=== PATIENT | female | born 1985 | race Caucasian/White ===

== ENCOUNTER → 2017-11-24 09:13 | Outpatient (CLI) | payer SELFPAY ==
[2017-11-24 09:49] LABS: Absolute Lymphocyte Count 1.25 X10^3/ul (0.83-4.51); Absolute Neutrophil Count 5.5 X10^3/uL (2.0-7.7); Basophil# 0.01 X10^3/uL; Basophil% 0.1 % (0-1); Eosinophil# 0.06 X10^3/uL; Eosinophils% 0.8 % (0-5); Hematocrit 38.5 % (37-47); Lymphocyte # 1.25 X10^3/ul (4.0); Lymphocyte % 17.7 % (19-41); Mean Corp Hgb Conc 33.8 g/gl (32-36); Mean Corpuscular Hgb 29.7 pg (27.0-32.0); Mean Corpuscular Volume 87.9 fL (81-99); Mean Platelet Vol. 9.5 fl (6.2-12.0); Monocyte# 0.29 X10^3/uL; Monocyte% 4.1 % (0-10); Neutrophil # 5.46 X10^3/uL (2.7-7.7); Neutrophil % 77.2 % (47-70); Platelet Count 296 K/mm3 (150-450); RBC Distribution Width CV 12.4 % (11.6-14.6); RBC Distribution Width SD 39.6 fl (35.1-43.9); Red Blood Count 4.38 M/mm3 (4.2-5.4); White Blood Count 7.1 K/mm3 (4.4-11.0)
[2017-11-24 09:54] LABS: POSITIVE COUNT NO; POSITIVE DIFFERENTIAL NO; POSITIVE MORPHOLOGY NO
[2017-11-24 10:14] LABS: Glucose Challenge Gest 1H 50g 170 mg/dL (70-140); Thyroid Stim Hormone (TSH) 0.76 uIU/mL (0.358-3.74)
[2017-11-24 11:53] LABS: HIV - WCH Non-Reactive (Nonreactive); Rubella IgG 278.7 IU/mL
[2017-11-25 09:31] LABS: HEPATITIS B SURFACE AG Negative (Negative)
[2017-11-26 02:54] LABS: Rapid Plasmin Reagin (RPR) NONREACTIVE (NONREACTIVE)
== END ==
PROVIDERS: Visit Provider Obstetrics & Gynecology
DX: O09.299 Supervision of pregnancy with other poor reproductive or obstetric history, unspecified trimester (principal); O99.280 Endocrine, nutritional and metabolic diseases complicating pregnancy, unspecified trimester; E01.0 Iodine-deficiency related diffuse (endemic) goiter; Z3A.00 Weeks of gestation of pregnancy not specified
CPT/HCPCS: 36415; 82950; 84439; 84443; 85025; 86592; 86703; 86762; 86850; 86900; 87340

== ENCOUNTER → 2017-11-24 14:33 | Outpatient (CLI) | payer OTHER, SELFPAY ==
[2017-11-24 16:26] LABS: Chlamydia Trachomatis by PCR Negative (Negative); Neisserai gonorrhoeae by PCR Negative (Negative); Probe Check PASS; Sample Adequacy Control PASS; Specimen Processing Control PASS
[2017-11-29 09:01] LABS: HPV APTIMA, High Risk Negative (Negative)
== END ==
PROVIDERS: Visit Provider Obstetrics & Gynecology
DX: Z12.4 Encounter for screening for malignant neoplasm of cervix (principal); O09.299 Supervision of pregnancy with other poor reproductive or obstetric history, unspecified trimester; O99.280 Endocrine, nutritional and metabolic diseases complicating pregnancy, unspecified trimester; E01.0 Iodine-deficiency related diffuse (endemic) goiter
CPT/HCPCS: 87086; 87088; 87491; 87591; 88175; G0145

== ENCOUNTER → 2017-12-07 09:58 | Outpatient (CLI) | payer OTHER, SELFPAY ==
[2017-12-07 11:03] LABS: Glucose GTT-Gestation. Fasting 83 mg/dL (<105)
[2017-12-07 11:55] LABS: Glucose GTT-Gestational 1 Hr 171 mg/dL (<190)
[2017-12-07 12:50] LABS: Glucose GTT-Gestational 2 Hr 129 mg/dL (<165)
[2017-12-07 13:52] LABS: Glucose GTT-Gestational 3 Hr 117 L (<145)
== END ==
PROVIDERS: Nurse Practitioner Women's Health; Visit Provider Obstetrics & Gynecology
DX: O99.810 Abnormal glucose complicating pregnancy (principal); Z3A.00 Weeks of gestation of pregnancy not specified
CPT/HCPCS: 36415; 82951; 82952

== ENCOUNTER → 2018-02-02 13:21 | Outpatient (CLI) | payer OTHER, SELFPAY ==
--- NOTE | 2018-02-02 13:23 | US_ITS ---
STUDY: SECOND AND THIRD TRIMESTER OBSTETRICAL ULTRASOUND REASON FOR EXAM: Female, 32 years old. , assessment LMP: September 21, 2017 TECHNIQUE: Transabdominal imaging of the pelvis was performed using real-time ultrasound. PRIOR ULTRASOUND: None. FINDINGS: There is a single intrauterine fetus. The fetus is in a breech presentation. There is demonstrated cardiac activity with a heart rate of 167 bpm. There is a normal amniotic fluid volume. The placenta is anterior in location and is not low lying. There are Grade 0 placental changes. The cervix measures 3.5 cm in length. The adnexal regions were not adequately visualized. BIOMETRY: BPD: 4.40 cm: 19 weeks, 3 days HC: 16.34 cm: 19 weeks, 1 days AC: 14.23 cm: 19 weeks, 5 days FL: 2.96 cm: 19 weeks, 1 days CI: 79% FL/BPD: 67% FL/HC: FL/AC: 21% HC/AC: 1.15 age by current US: 19 weeks, 3 days. MEGHANA by current US: June 26, 2018. Estimated weight: 287 grams, +/- 42 grams, 58 %. age by prior US: weeks, days. MEGHANA by prior US: . Age by LMP: 19 weeks, 1 days. MEGHANA by LMP: June 28, 2018. ANATOMY: Gender: Cranium: Normal lateral ventricles. Normal choroid plexus. Normal cerebellum. Normal cisterna magna. Normal face, nose and lips. Chest: Normal 4-chamber heart. Abdomen/Pelvis: Normal diaphragm. Normal stomach. Normal abdominal wall. Normal cord insertion. Normal 3 vessel cord. Normal kidneys. Normal bladder. Spine: Normal cervical spine. Normal thoracic spine. Normal lumbar spine. Extremities: Normal bilateral upper extremities. Normal bilateral lower extremities. US/OB Anatomy Scan IMPRESSION: There is a viable intrauterine with estimated gestational age of 19 weeks 3 days by the current ultrasound. No acute abnormalities are seen. Measurements are given above. Electronically Signed: Sis Bianchi MD at 0:18 EDT Tel Direct: [phone], Service support ,
== END ==
LOC: OPUS 13:23
PROVIDERS: Visit Provider Obstetrics & Gynecology
DX: O09.299 Supervision of pregnancy with other poor reproductive or obstetric history, unspecified trimester (principal); O99.280 Endocrine, nutritional and metabolic diseases complicating pregnancy, unspecified trimester; E01.0 Iodine-deficiency related diffuse (endemic) goiter; Z3A.00 Weeks of gestation of pregnancy not specified
CPT/HCPCS: 76805

== ENCOUNTER → 2018-04-04 13:42 | Outpatient (CLI) | payer OTHER, SELFPAY ==
[2018-04-04 16:24] LABS: Absolute Lymphocyte Count 1.42 X10^3/ul (0.83-4.51); Absolute Neutrophil Count 7.3 X10^3/uL (2.0-7.7); Basophil# 0.01 X10^3/uL; Basophil% 0.1 % (0-1); Eosinophil# 0.05 X10^3/uL; Eosinophils% 0.5 % (0-5); Hematocrit 35.1 % (37-47); Hemoglobin 11.6 g/dl (12.0-15.0); Lymphocyte # 1.42 X10^3/ul (4.0); Lymphocyte % 15.2 % (19-41); Mean Corpuscular Hgb 29.5 pg (27.0-32.0); Mean Corpuscular Volume 89.3 fL (81-99); Mean Platelet Vol. 9.8 fl (6.2-12.0); Monocyte# 0.55 X10^3/uL; Monocyte% 5.9 % (0-10); Neutrophil # 7.28 X10^3/uL (2.7-7.7); Platelet Count 249 K/mm3 (150-450); RBC Distribution Width CV 13.1 % (11.6-14.6); RBC Distribution Width SD 42.6 fl (35.1-43.9); Red Blood Count 3.93 M/mm3 (4.2-5.4); White Blood Count 9.3 K/mm3 (4.4-11.0)
[2018-04-04 16:27] LABS: POSITIVE COUNT NO; POSITIVE DIFFERENTIAL NO; POSITIVE MORPHOLOGY NO
[2018-04-04 16:28] LABS: Glucose Challenge Gest 1H 50g 148 mg/dL (70-140)
== END ==
PROVIDERS: Nurse Practitioner Women's Health; Visit Provider Obstetrics & Gynecology
DX: Z34.93 Encounter for supervision of normal pregnancy, unspecified, third trimester (principal); Z3A.28 28 weeks gestation of pregnancy
CPT/HCPCS: 36415; 82950; 85025

== ENCOUNTER → 2018-04-13 06:58 | Outpatient (CLI) | payer OTHER, SELFPAY ==
[2018-04-13 08:05] LABS: Glucose GTT-Gestation. Fasting 101 mg/dL (<105)
[2018-04-13 08:56] LABS: Glucose GTT-Gestational 1 Hr 242 mg/dL (<190)
[2018-04-13 09:49] LABS: Glucose GTT-Gestational 2 Hr 182 mg/dL (<165)
[2018-04-13 11:38] LABS: Glucose GTT-Gestational 3 Hr 120 L (<145)
== END ==
PROVIDERS: Nurse Practitioner Women's Health; Visit Provider Obstetrics & Gynecology
DX: O99.810 Abnormal glucose complicating pregnancy (principal); Z3A.00 Weeks of gestation of pregnancy not specified
CPT/HCPCS: 36415; 82951; 82952

== ENCOUNTER 2018-05-24 13:30 | Outpatient (RCR) | payer OTHER, SELFPAY | END 2018-05-24 23:59 | LOC: DC 13:30 | PROVIDERS: Visit Provider Nurse Practitioner Women's Health | DX: O24.419 Gestational diabetes mellitus in pregnancy, unspecified control (principal); Z71.3 Dietary counseling and surveillance | CPT/HCPCS: 97802; G0108 ==

== ENCOUNTER → 2018-05-31 17:28 | Outpatient (CLI) | payer OTHER, SELFPAY ==
[2018-05-31 18:57] LABS: Group B Strep DNA By PCR Negative (Negative); Internal Control PASS; Probe Check PASS; Specimen Processing Control PASS
== END ==
PROVIDERS: Visit Provider Obstetrics & Gynecology
DX: Z34.90 Encounter for supervision of normal pregnancy, unspecified, unspecified trimester (principal)
CPT/HCPCS: 87081; 87653

== ENCOUNTER → 2018-06-01 16:46 | Outpatient (CLI) | payer OTHER, SELFPAY | PROVIDERS: Visit Provider Obstetrics & Gynecology | DX: O24.419 Gestational diabetes mellitus in pregnancy, unspecified control (principal); Z3A.00 Weeks of gestation of pregnancy not specified | CPT/HCPCS: 76816 ==

== ENCOUNTER 2018-06-14 07:00 | Inpatient (IN) | payer OTHER, SELFPAY ==
[2018-06-14] MEDS: Lactated Ringers 1,000 ML 50 ML IV (07:15)
[2018-06-14 07:24] VITALS: BMI 280.7
[2018-06-14 07:31] LABS: Hematocrit 40.7 % (37-47); Hemoglobin 13.9 g/dl (12.0-15.0); Mean Corp Hgb Conc 34.2 g/gl (32-36); Mean Corpuscular Hgb 29.7 pg (27.0-32.0); Mean Platelet Vol. 10.2 fl (6.2-12.0); Platelet Count 263 K/mm3 (150-450); RBC Distribution Width CV 13.1 % (11.6-14.6); RBC Distribution Width SD 40.2 fl (35.1-43.9); Red Blood Count 4.68 M/mm3 (4.2-5.4); White Blood Count 12.4 K/mm3 (4.4-11.0)
[2018-06-14 07:36] LABS: Scan Indicated on CBC? Y/N NO
[2018-06-14] MEDS: Oxytocin 30 units/NS 500 ml 30 UNITS/500 ML IV.SOLN 334 UNITS IV (07:45)
--- NOTE | 2018-06-14 08:11 | PCM.HP.OB ---
- Problem List (1) Active labor at term Status: Acute (2) Gestational diabetes Status: Acute Qualifiers: (3) Thyromegaly Status: Acute Comment: labs and ultrasound ordered (4) Previous delivery, antepartum Status: Acute Comment: x1, considering TOLAC, 56% of success, uptodate education given (5) History of miscarriage, currently Status: Acute Comment: 15 week SAB- no d and c, ordered APL workup (6) Supervision of normal Status: Acute Qualifiers: Comment: PRR MEGHANA 06/28/18 gender surprise PC Warren Khoa History Date of Admission: 06/14/18 Final MEGHANA: 06/28/18 Gestational age: 38 Weeks and 0 Days History of this : This is a 32 year-old, , at 38 weeks gestational age presents IAL. she was 7 cm and delivered quickyl, she has been laboring at home for almost 24 hours intermittently but they just became severe tonight. she has had well controlled diabetes and has denied vb or lof, has had good fm. Surgical History: Surgical History (Last Reviewed 06/07/18 @ 13:16 by Deidra Alexander) delivery delivered O82 Allergies No Known Allergies Allergy (Verified 06/07/18 13:16) Home Medications: Home Medications vitamin,calcium,rjxyutyp-pcec-uvwok acid tablet 1 tab PO QDAY 11/24/17 blood-glucose meter kit See Dose Instructions .ROUTE .MEDSUPPLY #1 ea 04/13/18 blood sugar diagnostic strips See Dose Instructions .ROUTE .MEDSUPPLY #100 ea 05/16/18 Smoking Status: Never smoker Alcohol: None Number of Fetus(es): 1 Heart Tracin-160 mod variability recurrent periodic variables cat II tracing TOCO Analysis: q2 History Past Pregnancies: Past Pregnancies previous term cs for FTP 36 hour labor Delivery Date Name GA/Weeks Outcome Route Weight Gender Labor Length Anesthesia Delivery Location Provider FOB Labs: [facility] Results 06/14/18 06/14/18 07:15 07:15 WBC 12.4 H RBC 4.68 Hgb 13.9 Hct 40.7 MCV 87.0 MCH 29.7 MCHC 34.2 RDW 13.1 RDW Differential 40.2 Plt Count 263 MPV 10.2 Blood Type Pending Antibody Screen Pending Social History Smoking Status Never smoker Expected Delivery Method: Spontaneous Vaginal Review of Systems Constitutional: Denies: Fever, Malaise Eyes: Denies: Blurred vision, Vision Change HEENT: Denies: Head Aches, Visual Changes Cardiovascular: Denies: Chest Pain, Palpitations Respiratory: Denies: Cough, Shortness of Breath, Wheezing Gastrointestinal: Reports: Abdominal Pain, Nausea. Denies: Diarrhea, Vomiting Genitourinary: Denies: Dysuria, Hematuria Musculoskeletal: Denies: Joint Pain, Muscle pain Skin: Denies: Lesions, Rash Neurological: Denies: Blurred vision, Focal weakness, Headaches Psychiatric: Denies: Anxiety, Depression Endocrine: Denies: Heat/ Cold Intolerance Hematologic/ Lymphatic: Denies: Easy Bruising, Easy Bleeding Physical Exam General: Alert, Cooperative, No apparent distress HEENT: Atraumatic, Normocephalic. Negative for: Thyromegaly, Lymphadenopathy Cardiovascular: Regular rate Lungs: Normal air movement Abdomen: Soft, Non Tender, Gravid Neurological: Deep Tendon Reflexes 2+/4 and Symmetrical, Neuro grossly intact. 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 Negative for: Vulvar lesions Estimated gestational size: Appropriate for gestational size Presentation: Cephalic Cervix Dilation (cm): 7 Assessment/Plan All Active Problems (Last Reviewed 06/07/18 @ 13:16 by Deidra Alexander) Active labor at term (Acute) Gestational diabetes (Acute) Thyromegaly (Acute) Previous delivery, antepartum (Acute) History of miscarriage, currently (Acute) Supervision of normal (Acute) This is a 32 year-old, , at 38 weeks gestational age IAL desires TOLAC, delivered quickly uncomplicated
--- NOTE | 2018-06-14 08:14 | HP.PCM_ITS ---
- Problem List (1) Active labor at term Status: Acute (2) Gestational diabetes Status: Acute Qualifiers: (3) Thyromegaly Status: Acute Comment: labs and ultrasound ordered (4) Previous delivery, antepartum Status: Acute Comment: x1, considering TOLAC, 56% of success, uptodate education given (5) History of miscarriage, currently Status: Acute Comment: 15 week SAB- no d and c, ordered APL workup (6) Supervision of normal Status: Acute Qualifiers: Comment: PRR MEGHANA 06/28/18 gender surprise PC Warren Khao History Date of Admission: 06/14/18 Final MEGHANA: 06/28/18 Gestational age: 38 Weeks and 0 Days History of this : This is a 32 year-old, , at 38 weeks gestational age presents IAL. she was 7 cm and delivered quickyl, she has been laboring at home for almost 24 hours intermittently but they just became severe tonight. she has had well controlled diabetes and has denied vb or lof, has had good fm. Surgical History: Surgical History (Last Reviewed 06/07/18 @ 13:16 by Deidra Alexander) delivery delivered O82 Allergies No Known Allergies Allergy (Verified 06/07/18 13:16) Home Medications: Home Medications vitamin,calcium,fumkqgrm-kdxp-ufdii acid tablet 1 tab PO QDAY 11/24/17 blood-glucose meter kit See Dose Instructions .ROUTE .MEDSUPPLY #1 ea 04/13/18 blood sugar diagnostic strips See Dose Instructions .ROUTE .MEDSUPPLY #100 ea Smoking Status: Never smoker Alcohol: None Number of Fetus(es): 1 Heart Tracin-160 mod variability recurrent periodic variables cat II tracing TOCO Analysis: q2 History Past Pregnancies: Past Pregnancies previous term cs for FTP 36 hour labor Delivery Date Name GA/Weeks Outcome Route Weight Infant Gender Labor Length Anesthesia Delivery Location Provider FOB Labs: [facility] Labs & Results 06/14/18 06/14/18 07:15 07:15 WBC 12.4 H RBC 4.68 Hgb 13.9 Hct 40.7 MCV 87.0 MCH 29.7 MCHC 34.2 RDW 13.1 RDW Differential 40.2 Plt Count 263 MPV 10.2 Blood Type Pending Antibody Screen Pending Social History Smoking Status Never smoker Expected Delivery Method: Spontaneous Vaginal Review of Systems Constitutional: Denies: Fever, Malaise Eyes: Denies: Blurred vision, Vision Change HEENT: Denies: Head Aches, Visual Changes Cardiovascular: Denies: Chest Pain, Palpitations Respiratory: Denies: Cough, Shortness of Breath, Wheezing Gastrointestinal: Reports: Abdominal Pain, Nausea. Denies: Diarrhea, Vomiting Genitourinary: Denies: Dysuria, Hematuria Musculoskeletal: Denies: Joint Pain, Muscle pain Skin: Denies: Lesions, Rash Neurological: Denies: Blurred vision, Focal weakness, Headaches Psychiatric: Denies: Anxiety, Depression Endocrine: Denies: Heat/ Cold Intolerance Hematologic/ Lymphatic: Denies: Easy Bruising, Easy Bleeding Physical Exam General: Alert, Cooperative, No apparent distress HEENT: Atraumatic, Normocephalic. Negative for: Thyromegaly, Lymphadenopathy Cardiovascular: Regular rate Lungs: Normal air movement Abdomen: Soft, Non Tender, Gravid Neurological: Deep Tendon Reflexes 2+/4 and Symmetrical, Neuro grossly intact. 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 Negative for: Vulvar lesions Estimated gestational size: Appropriate for gestational size Presentation: Cephalic Cervix Dilation (cm): 7 Assessment/Plan All Active Problems (Last Reviewed 06/07/18 @ 13:16 by Deidra Alexander) Active labor at term (Acute) Gestational diabetes (Acute) Thyromegaly (Acute) Previous delivery, antepartum (Acute) History of miscarriage, currently (Acute) Supervision of normal (Acute) This is a 32 year-old, , at 38 weeks gestational age IAL desires TOLAC, delivered quickly uncomplicated
[2018-06-14] MEDS: Oxytocin 30 units/NS 500 ml 30 UNITS/500 ML IV.SOLN 167 UNITS IV (08:15)
[2018-06-14 08:16] LABS: Bedside Glucose 129 mg/dL (70-110)
[2018-06-14] MEDS: Methylergonovine 0.2 MG/ML Ampul IM (08:49)
[2018-06-14 09:10] LABS: Bedside Glucose 118 mg/dL (70-110)
--- NOTE | 2018-06-14 09:30 | PCM.PN.BLA ---
Progress Note Called to see patient Nurse worried about bleeding. ? laceration. Repored 2nd deg laceration at delivery. Precipitous no anesthesia. Appears fatigued Pt afeb, VSS. Ordered CBC. Pending. Fundus firm tender consistent w/ recent delivery and firm fundal checks. Bleeding at perineum. slow trickle. Mod amt lochia rubra on pad No further pelvic exam as amt of bleeding not concerning at present. Will continue IV pitocin at Methergine given 0.2 mg IM x one. A/P: S/P Bleeding. Likely 2/2 blood accumulated within uterus until delivery of placenta. continue to observe. Repeat CBC ordered for AM also.
[2018-06-14 09:47] LABS: Hematocrit 37.2 % (37-47); Hemoglobin 12.5 g/dl (12.0-15.0); Mean Corp Hgb Conc 33.6 g/gl (32-36); Mean Corpuscular Hgb 29.7 pg (27.0-32.0); Mean Corpuscular Volume 88.4 fL (81-99); Mean Platelet Vol. 10.2 fl (6.2-12.0); Platelet Count 232 K/mm3 (150-450); RBC Distribution Width CV 13.2 % (11.6-14.6); RBC Distribution Width SD 42.3 fl (35.1-43.9); Red Blood Count 4.21 M/mm3 (4.2-5.4); Scan Indicated on CBC? Y/N NO; White Blood Count 16.6 K/mm3 (4.4-11.0)
[2018-06-14] MEDS: 0.9% Saline Lock 10 ML Syringe IV (10:29)
[2018-06-14 12:06] VITALS: BP 140/76; PULSE 120; RESP 20; TEMP 36.7
[2018-06-14] MEDS: Naproxen 250 MG Tablet PO (12:11)
[2018-06-14 12:29] VITALS: PULSE 105; RESP 18; O2SAT 96
--- NOTE | 2018-06-14 12:59 | NURSING ---
1255 f/f one below umbilicus lochia small to moderate 63 cc on pad in one hour no trickling seen; pulse ox on for last 25 minutes maternal pulse ranging from 105-110 as a baseline with increases to 120 and decreases to [address] santos called and given vital sign stats and lochia amount plan is to continue to monitor bleeding and vital signs if maternal pulse consistently stays above or at 120 a EKG is to be ordered.
[2018-06-14 14:47] VITALS: BP 141/82; PULSE 107; RESP 18; TEMP 36.3
--- NOTE | 2018-06-14 14:48 | NURSING ---
Pt up to bathroom, pt able to void 700+cc, passed 300cc blood clot into urine hat. Pt reports feeling much better after voiding. Unable to locate fundus & bleeding is small at this time. Dr Pedro notified of Vital signs, blood clot and unable to locate fundus. Orders received for Methergine PO.
[2018-06-14 16:00] VITALS: BP 131/64; PULSE 93; RESP 16; TEMP 37.2
[2018-06-14] MEDS: Acetaminophen 500 MG Tablet 1000 MG PO (18:30)
[2018-06-14 20:21] VITALS: BP 135/71; PULSE 93; RESP 20; TEMP 36.1
[2018-06-14 23:25] VITALS: BP 129/68; PULSE 84; RESP 18; TEMP 35.8
[2018-06-15 03:03] VITALS: BP 122/75; PULSE 92; RESP 18; TEMP 35.9
[2018-06-15] MEDS: Naproxen 250 MG Tablet PO ×2 (03:11→20:02)
[2018-06-15 05:25] LABS: Bedside Glucose 102 mg/dL (70-110)
[2018-06-15 05:49] LABS: Hematocrit 33.5 % (37-47); Hemoglobin 11.2 g/dl (12.0-15.0); Mean Corp Hgb Conc 33.4 g/gl (32-36); Mean Corpuscular Hgb 29.8 pg (27.0-32.0); Mean Corpuscular Volume 89.1 fL (81-99); Mean Platelet Vol. 9.8 fl (6.2-12.0); Platelet Count 212 K/mm3 (150-450); RBC Distribution Width CV 13.4 % (11.6-14.6); RBC Distribution Width SD 41.8 fl (35.1-43.9); Red Blood Count 3.76 M/mm3 (4.2-5.4); White Blood Count 10.2 K/mm3 (4.4-11.0)
[2018-06-15 06:02] LABS: Scan Indicated on CBC? Y/N NO
--- NOTE | 2018-06-15 08:14 | PCM.PN.OB ---
Patient Problems: Active and Suspected Problems (Last Reviewed 06/07/18 @ 13:16 by Deidra Alexander) Active labor at term (Acute) Subjective: Doing well. Up ambulating. States no longer with palpitations. No CP, SOB - Physical Exam General: Alert, Oriented x3 Abdomen: Soft, Non Tender, - - FF below U Vital Signs Temp Pulse Resp BP Pulse Ox 96.7 F L 92 18 122/75 H 96 06/15/18 03:03 06/15/18 03:03 06/15/18 03:03 06/15/18 03:03 06/14/18 12:29 Oxygen Delivery Method Room Air Weight: 245 lb 9.519 oz Body Mass Index (BMI) 280.7 Intake and Output for Last 24 Hours 06/13/18 06/14/18 06/15/18 23:59 23:59 23:59 Intake Total 373 / 373 Output Total 710 / 710 Balance -337 / -337 Laboratory Tests Past 24 Hrs 06/14/18 06/14/18 06/15/18 07:15 09:25 05:20 WBC 16.6 H 10.2 RBC 4.21 3.76 L Hgb 12.5 11.2 L Hct 37.2 33.5 L MCV 88.4 89.1 MCH 29.7 29.8 MCHC 33.6 33.4 RDW 13.2 13.4 RDW Differential 42.3 41.8 Plt Count 232 212 MPV 10.2 9.8 Blood Type A POSITIVE Antibody Screen NEGATIVE POC Glucose 06/15/18 06/14/18 06/14/18 05:14 09:01 07:29 POC Glucose 102 118 H 129 H Medical Necessity - Tobacco Use Smoking Status: Never smoker Assessment/Plan All Active Problems (Last Reviewed 06/07/18 @ 13:16 by Deidra Alexander) Active labor at term (Acute) Gestational diabetes (Acute) Thyromegaly (Acute) Previous delivery, antepartum (Acute) History of miscarriage, currently (Acute) Supervision of normal (Acute) PPD#1: Reviewed hgb now 11.3-may dc IV. Will check with Dr. Pedro to dc methergine. FBS 102. Routine management Pain controlled. Otherwise routine care
[2018-06-15 09:13] VITALS: BP 120/69; PULSE 82; RESP 16; TEMP 36.6; O2SAT 97
[2018-06-15 09:20] VITALS: PULSE 82
[2018-06-15 11:04] VITALS: BP 125/72; PULSE 76; RESP 18; TEMP 36.6; O2SAT 98
--- NOTE | 2018-06-15 12:38 | NURSING ---
This clinical nursing professor reviewed the charting completed by Layla Bhagat, student nurse.
[2018-06-15 14:00] VITALS: BP 117/68; PULSE 80; RESP 18; TEMP 36.4
[2018-06-15 20:00] VITALS: BP 122/62; PULSE 109; RESP 18; TEMP 36.4
[2018-06-16] MEDS: Acetaminophen 500 MG Tablet 1000 MG PO (01:28)
[2018-06-16 01:30] VITALS: BP 125/59; PULSE 95; RESP 18; TEMP 36.3
[2018-06-16 08:06] VITALS: BP 121/67; PULSE 85; RESP 18; TEMP 36.5
--- NOTE | 2018-06-16 09:35 | NURSING ---
0800 this instructor helped student with the assessment and vital signs. Also helped student with the documentation of findings. The student gave a report of the assessment and vs to the primary RN Carlos Enrique Calderon.
--- NOTE | 2018-06-16 11:05 | PCM.PN.OB ---
Patient Problems: Active and Suspected Problems (Last Reviewed 06/07/18 @ 13:16 by Deidra Alexander) Active labor at term (Acute) Subjective: No SOB, CP. doing well. Plans home today - Physical Exam General: Alert, Oriented x3 Abdomen: Soft, Non Tender, - - FF below U Vital Signs Temp Pulse Resp BP Pulse Ox 97.7 F L 85 18 121/67 H 98 06/16/18 08:06 06/16/18 08:06 06/16/18 08:06 06/16/18 08:06 06/15/18 11:04 Oxygen Delivery Method Room Air Weight: 245 lb 9.519 oz Body Mass Index (BMI) 280.7 Intake and Output for Last 24 Hours 06/14/18 06/15/18 06/16/18 23:59 23:59 23:59 Intake Total 373 / 373 Output Total 710 / 710 Balance -337 / -337 Medical Necessity - Tobacco Use Smoking Status: Never smoker Assessment/Plan All Active Problems (Last Reviewed 06/07/18 @ 13:16 by Deidra Alexander) Active labor at term (Acute) Gestational diabetes (Acute) Thyromegaly (Acute) Previous delivery, antepartum (Acute) History of miscarriage, currently (Acute) Supervision of normal (Acute) PPD #2: Routine care. . Home today
--- NOTE | 2018-06-16 11:07 | PCM.DCVAG ---
Additional Instructions: If you experience any of the following, contact your healthcare provider. Bleeding that soaks a pad every hour for 2 hours Fever 100.4 or higher Unrelieved incision or abdominal pain Swelling, redness, discharge or bleeding from your incision or episiotomy site Your incision begins to separate Problems urinating (including inability to urinate or burning while urinating). Visual changes Severe headache Flu-like symptoms Pain or redness in one of both of your breasts Pain, warmth, tenderness or swelling in your legs, especially the calf area Frequent nausea and vomiting Symptoms of depression or anxiety If you experience any of the following, call 911 or go to the nearest Emergency Room. Chest pain Problems breathing Seizure activity Partial or complete paralysis of a body part, slurred speech, weakness or drooping of the face, or a sudden inability to walk or hold your balance Allergies/Adverse Reactions: Allergies No Known Allergies Allergy (Verified 06/07/18 13:16) Medications to take at Discharge vitamin,calcium,vfbeywgg-msgf-cmqxb acid tablet 1 tab PO QDAY 11/24/17 blood-glucose meter kit See Dose Instructions .ROUTE .MEDSUPPLY #1 ea 04/13/18 blood sugar diagnostic strips See Dose Instructions .ROUTE .MEDSUPPLY #100 ea 05/16/18 Primary Care Physician: Care Physician,No Primary [Primary Care Provider] - Test Results: Test results from this visit will be discussed in further detail at your follow-up appointment, if applicable.
--- NOTE | 2018-06-16 11:08 | DCINST_ITS ---
Additional Instructions: If you experience any of the following, contact your healthcare provider. * Bleeding that soaks a pad every hour for 2 hours * Fever 100.4 or higher * Unrelieved incision or abdominal pain * Swelling, redness, discharge or bleeding from your incision or episiotomy site * Your incision begins to separate * Problems urinating (including inability to urinate or burning while urinating) . * Visual changes * Severe headache * Flu-like symptoms * Pain or redness in one of both of your breasts * Pain, warmth, tenderness or swelling in your legs, especially the calf area * Frequent nausea and vomiting * Symptoms of depression or anxiety If you experience any of the following, call 911 or go to the nearest Emergency Room. * Chest pain * Problems breathing * Seizure activity * Partial or complete paralysis of a body part, slurred speech, weakness or drooping of the face, or a sudden inability to walk or hold your balance Allergies/Adverse Reactions: Allergies No Known Allergies Allergy (Verified 06/07/18 13:16) Medications to take at Discharge vitamin,calcium,sncuinyi-dkid-mnkhy acid tablet 1 tab PO QDAY 11/24/17 blood-glucose meter kit See Dose Instructions .ROUTE .MEDSUPPLY #1 ea 04/13/18 blood sugar diagnostic strips See Dose Instructions .ROUTE .MEDSUPPLY #100 ea Primary Care Physician: Care Physician,No Primary [Primary Care Provider] - Test Results: Test results from this visit will be discussed in further detail at your follow- up appointment, if applicable.
--- NOTE | 2018-06-16 22:42 | OP.PCM_ITS ---
- Problem List (1) Active labor at term Status: Acute (2) Gestational diabetes Status: Acute Qualifiers: (3) Thyromegaly Status: Acute Comment: labs and ultrasound ordered (4) Previous delivery, antepartum Status: Acute Comment: x1, considering TOLAC, 56% of success, uptodate education given (5) History of miscarriage, currently Status: Acute Comment: 15 week SAB- no d and c, ordered APL workup (6) Supervision of normal Status: Acute Qualifiers: Comment: PRR MEGHANA 06/28/18 gender surprise PC Warren Khoa Vaginal Delivery Maternal Presentation: Active Labor tolac Amniotic Membrane Rupture Type: Artificial Amniotic Fluid Description: Clear Final MEGHANA: 06/28/18 Gestational age: 38 Weeks and 2 Days Date of Procedure: 06/14/18 Pre-Operative Diagnosis: ial tolac Post-Operative Diagnosis: same Surgery/ Procedure Performed: Spontaneous Vaginal Delivery Type of Anesthesia: Local with 1% lidocaine Description of Procedure: Patient began pushing and a pudendal block was placed bilaterally after Betadine prepped the initial spines were located bilaterally and 2 cm medial and posterior into the sacrospinous ligament 10 cc of 1% lidocaine was injected bilaterally without complication. The patient resumed pushing and delivered the head in the DARNELL presentation. The head was delivered atraumatically. The anterior and posterior shoulders delivered without complication followed by the rest of the infant and the infant was placed on the maternal abdomen. Delayed cord clamping was employed for approximately 60 seconds. Cord was clamped and cut and gentle traction was applied to the cord and the placenta delivered spontaneously immediately following it was noted to be intact with three-vessel cord. The perineum and vagina were inspected and noted to have a small second- degree perineal laceration. Patient and tolerated delivery well. Presentation: DARNELL Placental Delivery Description: Spontaneous Placenta Disposition: [facility] Cord Entanglement: None A gender: Male Episiotomy Description: None Laceration: Perineal Extension/lac, 2nd degree Medications given after delivery: IV Pitocin Complications: None
== END 2018-06-16 11:38 | disposition home or self-care (01) | DRG 775 ==
PROVIDERS: Obstetrics & Gynecology; Admitting Provider Obstetrics & Gynecology; Visit Provider Obstetrics & Gynecology
DX: O24.429 Gestational diabetes mellitus in childbirth, unspecified control (principal); O34.219 Maternal care for unspecified type scar from previous cesarean delivery; O62.3 Precipitate labor; O70.1 Second degree perineal laceration during delivery; Z3A.38 38 weeks gestation of pregnancy; Z37.0 Single live birth
CPT/HCPCS: 59025; 59050; 82962; 85027; 86850; 86900; 99218; J7120; A4216; G0378

== ENCOUNTER → 2021-08-19 14:13 | Outpatient (CLI) | payer BC, SELFPAY | PROVIDERS: Referring Provider Obstetrics & Gynecology; Visit Provider Obstetrics & Gynecology | DX: N91.2 Amenorrhea, unspecified (principal) | CPT/HCPCS: 36415; 84702 ==

== ENCOUNTER → 2021-09-16 08:31 | Outpatient (CLI) | payer BC, SELFPAY ==
--- NOTE | 2021-09-16 08:33 | US_ITS ---
STUDY: FIRST TRIMESTER OBSTETRICAL ULTRASOUND REASON FOR EXAM: Female, 36 years old . Dating. Patient unsure of dates. LMP: 06/11/2021. TECHNIQUE: Transabdominal TECHNICAL QUALITY: Adequate. PRIOR ULTRASOUND: None. FINDINGS: There is visualization of a single gestational sac in a normal intrauterine position. The mean sac diameter (MSD) measures 4.9 cm, indicating an estimated gestational age (EGA) of 10 weeks, 3 days. The gestational sac shape is within normal limits. There is no demonstrated yolk sac. The placenta is non-visualized. There is visualization of a live embryo. The crown-rump length (CRL) measures 6.07 cm, indicating an estimated gestational age (EGA) of 12 weeks, 3 days. There is demonstrated cardiac activity with a heart rate of 167 bpm. The estimated gestation age (EGA) by LMP is 13 weeks, 6 days. The estimated date of delivery (MEGHANA) by LMP is 03/18/2022. The estimated gestation age (EGA) by US is 12 weeks, 3 days. The estimated date of delivery (MEGHANA) by US is 03/28/2022. The uterus measures 11.3 cm x 9.2 cm x 7.4 cm. There is no demonstrated uterine fibroid. The cervix is closed. The right ovary was not visualized. The left ovary was not visualized. There is no fluid in the cul de sac. US/Init OB < 14Wks US IMPRESSION: A single live intrauterine gestation with a mean gestational age of 13 weeks and 6 days. Electronically Signed: Denver Peoples MD at 12:49 EST , Service support ,
== END ==
PROVIDERS: Referring Provider Nurse Practitioner Women's Health; Visit Provider Nurse Practitioner Women's Health
DX: Z36.87 Encounter for antenatal screening for uncertain dates (principal)
CPT/HCPCS: 76801

== ENCOUNTER 2021-09-30 12:50 | Outpatient (CLI) | payer BC, SELFPAY ==
[2021-09-30 14:27] LABS: Amphetamine Urine VISTA NEGATIVE (<1000 ng/mL); Barbiturate Urine VISTA NEGATIVE (< 200 ng/mL); Benzodiazepine Urine VISTA NEGATIVE (< 200 ng/mL); Cocaine Urine VISTA NEGATIVE (< 300 ng/mL); Ecstacy Urine VISTA NEGATIVE (< 500 ng/mL); Methadone Urine VISTA NEGATIVE (< 300 ng/mL); PCP Urine VISTA NEGATIVE (< 25 ng/mL); THC Urine VISTA NEGATIVE (< 50 ng/mL); Vista UDS pH Range 6
[2021-10-02 22:06] LABS: Chlamydia By Nucleic Acid AMP Negative (Negative)
[2021-10-03 15:31] LABS: Gonococcus By Nucleic Acid AMP Negative (Negative)
== END 2021-09-30 23:59 | disposition short-term general hospital (02) ==
LOC: LABSPEC 12:52
PROVIDERS: Visit Provider Obstetrics & Gynecology
DX: Z34.90 Encounter for supervision of normal pregnancy, unspecified, unspecified trimester (principal)
CPT/HCPCS: 80307; 87086; 87088; 87491; 87591

== ENCOUNTER 2021-11-05 10:56 | Outpatient (CLI) | payer BC, SELFPAY ==
[2021-11-05 11:09] LABS: Absolute Lymphocyte Count 1.54 X10^3/uL (0.83-4.51); Absolute Neutrophil Count 5.8 X10^3/uL (2.0-7.7); Basophil# 0.02 X10^3/uL; Basophil% 0.3 % (0-1); Eosinophil# 0.07 X10^3/uL; Eosinophils% 0.9 % (0-5); Hematocrit 36.7 % (37-47); Hemoglobin 12.7 g/dL (12.0-15.0); Lymphocyte # 1.54 X10^3/ul (0.83-4.51); Lymphocyte % 19.5 % (19-41); Mean Corp Hgb Conc 34.6 g/dL (32-36); Mean Corpuscular Hgb 30.4 pg (27.0-32.0); Mean Corpuscular Volume 87.8 fL (81-99); Mean Platelet Vol. 9.8 fl (6.2-12.0); Monocyte# 0.47 X10^3/uL; Monocyte% 5.9 % (0-10); NRBC Flagged by Analyzer 0 % (0-5); Neutrophil # 5.78 X10^3/uL (2.7-7.7); Platelet Count 258 K/mm3 (150-450); RBC Distribution Width CV 12.4 % (11.6-14.6); RBC Distribution Width SD 39.5 fl (35.1-43.9); Red Blood Count 4.18 M/mm3 (4.2-5.4); White Blood Count 7.9 K/mm3 (4.4-11.0)
[2021-11-05 11:43] LABS: Hemoglobin A1c 5.4 % (3.8-5.6)
[2021-11-05 12:19] LABS: HIV - WCH Non-Reactive (Nonreactive); Hepatitis B Surface Antigen Non-Reactive (Nonreactive); Hepatitis C Antibody Non-Reactive (Nonreactive); Rubella IgG Reactive (Nonreactive); Syphilis Antibodies Non-reactive
== END 2021-11-05 23:59 | disposition home or self-care (01) ==
LOC: PAVLAB 10:57
PROVIDERS: Obstetrics & Gynecology; Referring Provider Obstetrics & Gynecology; Visit Provider Obstetrics & Gynecology
DX: O99.210 Obesity complicating pregnancy, unspecified trimester (principal); E66.9 Obesity, unspecified; Z3A.00 Weeks of gestation of pregnancy not specified
CPT/HCPCS: 36415; 83036; 85025; 86703; 86762; 86780; 86803; 86850; 86900; 86901; 87340

== ENCOUNTER 2021-11-12 13:52 | Outpatient (CLI) | payer BC, SELFPAY ==
--- NOTE | 2021-11-12 13:54 | US_ITS ---
STUDY: SECOND AND THIRD TRIMESTER OBSTETRICAL ULTRASOUND REASON FOR EXAM: Female, 36 years old anatomy LMP: 06/11/2021. TECHNIQUE: Transabdominal and Transvaginal TECHNICAL QUALITY: Adequate. PRIOR ULTRASOUND: Comparison is made with prior examination dated 09/16/2021. FINDINGS: There is a single intrauterine fetus. The fetus is in a breech presentation. There is demonstrated cardiac activity with a heart rate of 150 bpm. There is a normal amniotic fluid volume. The largest amniotic fluid pocket measures 6 cm x 5 cm. The amniotic fluid index (NISREEN) is within normal limits. The placenta is fundal in location. There are Grade 0 placental changes. The cervix measures 3.2 cm in length. The bilateral adnexal regions are normal. BIOMETRY: BPD: 5.13 cm: 21 weeks, 3 days HC: 18.49 cm: 20 weeks, 5 days AC: 16.37 cm: 21 weeks, 3 days FL: 3.63 cm: 21 weeks, 3 days CI: 81% FL/BPD: 71% FL/HC: FL/AC: 22% HC/AC: 1.13 age by current US: 21 weeks, 1 days. MEGHANA by current US: 03/24/2022. Estimated weight: 429 grams, +/- 64 grams, 22 %. age by prior US: 20 weeks, 4 days. MEGHANA by prior US: 03/28/2022. Age by LMP: 22 weeks, 0 days. MEGHANA by LMP: 03/18/2022. ANATOMY: Gender: Male Cranium: Normal lateral ventricles. Normal choroid plexus. Normal cerebellum. Normal cisterna magna. Normal face, nose and lips. Chest: Normal 4-chamber heart. Abdomen/Pelvis: Normal diaphragm. Normal stomach. Normal abdominal wall. Normal cord insertion. Normal 3 vessel cord. Normal kidneys. Normal bladder. Spine: Normal cervical spine. Normal thoracic spine. Normal lumbar spine. Normal sacrum. Extremities: Normal bilateral upper extremities. Normal bilateral lower extremities. IMPRESSION: Single live intrauterine gestation with a mean gestational age of 20 weeks and 4 days. The measurements obtained today fall within the normal expected range. Electronically Signed: Denver Peoples MD at 15:03 EST , STUDY: FIRST TRIMESTER OBSTETRICAL ULTRASOUND REASON FOR EXAM: Female, 36 years old . Cervical length measurement. LMP: 06/11/2022. TECHNIQUE: Transvaginal TECHNICAL QUALITY: Adequate. PRIOR ULTRASOUND: None. FINDINGS: Cervical length measures 3.2 cm. US/OB Anatomy Scan IMPRESSION: Cervical length measures 3.2 cm. Electronically Signed: Denver Peoples MD at 15:03 EST ,
== END 2021-11-12 23:59 | disposition home or self-care (01) ==
LOC: OPUS 13:53
PROVIDERS: Referring Provider Obstetrics & Gynecology; Visit Provider Obstetrics & Gynecology
DX: Z34.83 Encounter for supervision of other normal pregnancy, third trimester (principal)
CPT/HCPCS: 76805; 76817

== ENCOUNTER 2021-12-24 09:33 | Outpatient (CLI) | payer BC, SELFPAY ==
[2021-12-24 10:08] LABS: Absolute Lymphocyte Count 1.34 X10^3/uL (0.83-4.51); Absolute Neutrophil Count 5.6 X10^3/uL (2.0-7.7); Basophil# 0.02 X10^3/uL; Basophil% 0.3 % (0-1); Eosinophil# 0.07 X10^3/uL; Eosinophils% 0.9 % (0-5); Hematocrit 36.5 % (37-47); Hemoglobin 12.4 g/dL (12.0-15.0); Lymphocyte # 1.34 X10^3/ul (0.83-4.51); Lymphocyte % 17.8 % (19-41); Mean Corpuscular Hgb 30.2 pg (27.0-32.0); Mean Corpuscular Volume 88.8 fL (81-99); Mean Platelet Vol. 9.6 fl (6.2-12.0); Monocyte# 0.46 X10^3/uL; Monocyte% 6.1 % (0-10); NRBC Flagged by Analyzer 0 % (0-5); Neutrophil % 74.4 % (47-70); Platelet Count 252 K/mm3 (150-450); RBC Distribution Width SD 42.2 fl (35.1-43.9); Red Blood Count 4.11 M/mm3 (4.2-5.4); White Blood Count 7.5 K/mm3 (4.4-11.0)
[2021-12-24 10:29] LABS: Glucose Challenge Gest 1H 50g 181 mg/dL (70-140)
== END 2021-12-24 23:59 | disposition home or self-care (01) ==
LOC: PAVLAB 09:34
PROVIDERS: Referring Provider Obstetrics & Gynecology; Visit Provider Obstetrics & Gynecology
DX: Z34.80 Encounter for supervision of other normal pregnancy, unspecified trimester (principal)
CPT/HCPCS: 36415; 82950; 85025

== ENCOUNTER → 2022-02-18 | Outpatient (CLI) | payer BC, SELFPAY ==
--- NOTE | 2022-02-18 11:42 | US_ITS ---
STUDY: SECOND AND THIRD TRIMESTER OBSTETRICAL ULTRASOUND - LIMITED REASON FOR EXAM: Female, 36 years old growth LMP: 06/11/2021 PRIOR ULTRASOUND: 11/12/2021 TECHNIQUE: Transabdominal TECHNICAL QUALITY: Adequate. FINDINGS: There is a single intrauterine fetus. The fetus is in a cephalic presentation. There is demonstrated cardiac activity with a heart rate of 151 bpm. There is a normal amniotic fluid volume. The largest amniotic fluid pocket measures 4.8 cm. The amniotic fluid index (NISREEN) is 10.8 cm. The placenta is anterior in location and is not low lying. There are Grade 3 placental changes. The cervix measures 3.0 cm in length. BIOMETRY: BPD: 8.5 centers: 34 weeks, 2 days HC: 32.6 cm: 36 weeks, 6 days AC: 32.0 cm: 35 weeks, 6 days FL: 6.9 cm: 35 weeks, 2 days Age by LMP: 36 weeks, 0 days. MEGHANA by LMP: 03/18/2022. DEXA age by current US: 35 weeks, 4 days. MEGHANA by current US: 03/21/2022. Estimated weight: 2728 grams, +/- 409 grams, 41 percentile. Gender: US/OB Limited With Biometrics IMPRESSION: Living intrauterine of 35 weeks 4 days as described above. Electronically Signed: Gurmeet Hall MD at 16:57 EDT ,
== END | disposition home or self-care (01) ==
LOC: US 11:41
PROVIDERS: Referring Provider Obstetrics & Gynecology; Visit Provider Obstetrics & Gynecology
DX: O24.419 Gestational diabetes mellitus in pregnancy, unspecified control (principal); Z3A.35 35 weeks gestation of pregnancy
CPT/HCPCS: 76816

== ENCOUNTER → 2022-02-20 | Outpatient (CLI) | payer BC, SELFPAY | END | disposition home or self-care (01) | LOC: LABSPEC 15:18 | PROVIDERS: Visit Provider Obstetrics & Gynecology | DX: Z36.85 Encounter for antenatal screening for Streptococcus B (principal) | CPT/HCPCS: 87081 ==

== ENCOUNTER 2022-03-17 01:00 | Inpatient (IN) | payer BC, SELFPAY ==
[2022-03-17] VITALS (28 sets, daily range): BP systolic 129–158; BP diastolic 69–87; PULSE 64–95; RESP 16–18; TEMP 36–36.8; O2SAT 97–100; BMI 45.8
[2022-03-17] MEDS: Lactated Ringers 1,000 ML 200 ML IV ×2 (01:40→06:20)
[2022-03-17 02:01] LABS: Absolute Lymphocyte Count 1.94 X10^3/uL (0.83-4.51); Absolute Neutrophil Count 6.6 X10^3/uL (2.0-7.7); Basophil# 0.01 X10^3/uL; Basophil% 0.1 % (0-1); Eosinophil# 0.05 X10^3/uL; Eosinophils% 0.5 % (0-5); Hematocrit 36.7 % (37-47); Hemoglobin 12.5 g/dL (12.0-15.0); Lymphocyte # 1.94 X10^3/ul (0.83-4.51); Mean Corp Hgb Conc 34.1 g/dL (32-36); Mean Corpuscular Volume 88.2 fL (81-99); Mean Platelet Vol. 10.2 fl (6.2-12.0); Monocyte% 6.5 % (0-10); NRBC Flagged by Analyzer 0 % (0-5); Neutrophil % 71.6 % (47-70); Platelet Count 241 K/mm3 (150-450); RBC Distribution Width CV 12.2 % (11.6-14.6); RBC Distribution Width SD 39.3 fl (35.1-43.9); Red Blood Count 4.16 M/mm3 (4.2-5.4); White Blood Count 9.2 K/mm3 (4.4-11.0)
[2022-03-17 02:31] LABS: Bedside Glucose 106 mg/dL (74-106)
[2022-03-17 03:30] LABS: Bedside Glucose 108 mg/dL (74-106)
[2022-03-17 04:41] LABS: Bedside Glucose 93 mg/dL (74-106)
[2022-03-17 05:30] LABS: Bedside Glucose 95 mg/dL (74-106)
[2022-03-17] MEDS: Oxytocin 30 units/NS 500 ml 30 UNITS/500 ML IV.SOLN IV (05:48)
--- NOTE | 2022-03-17 06:23 | HP.PCM.OB_ITS ---
HPI - General General Date of Admission: 03/17/22 HPI Narrative NICOLE YANG, is a 36 F who presents IAL 5 cm dilated ruptured clear fluid since 10:30 pm ctx q 7-10 min no vb Maternal Data Information MEGHANA Calculator Estimated Delivery Date Method Current WG Current Estimate 03/18/22 Ultrasound #1 39w 6d PFSH PFSH Medical History (Updated 03/17/22 @ 06:[address] Yu Zaman MD) Asthma Home Medications prenat.vits,kennedy,jmy-njrd-bftxy ( Vitamin) 1 tab PO QDAY 11/24/17 [History Last Taken 03/16/22 09:00] blood sugar diagnostic ([facility] Test) #100 ea 12/24/21 [Rx Last Taken Unknown] blood-glucose meter ([facility] Blood Glucose System) #1 ea 12/24/21 [Rx Last Taken Unknown] Allergy/AdvReac Type Severity Reaction Status Date / Time No Known Allergies Allergy Verified 03/12/22 13:41 Surgical History delivery delivered History of surgery Social History Smoking Status: Former smoker alcohol intake: never substance use type: does not use caffeine: Yes frequency: 3-4 times per week seatbelt use: always do you feel safe at home: Yes additional social history: [employer] Patient works at [employer] History 4 Elective abortions Hx Para 2 Spontaneous abortions Hx # Term Pregnancies Ectopic pregnancies Hx # Pregnancies Multiple births # of living children 2 Past Pregnancies Del. Date Name GA/Weeks Outcome Route Bth Weight Gen Labor Lgth Anesthesia Del Locatn Provider FOB Unknown 2011 boy 15 spontaneous 09/05/14 Warren 42 live - full term 8lbs 10oz Male spinal [facility] Dr. Adrianne Couch 06/14/18 Eder 38 live - full term 5lbs 14oz Male precipitous 30mins pudendal [facility] Delivery Date: 09/05/14 Last Updated by: Christine Estarda fht, fever Visit Details Expected Delivery Route/Plan patient counseled regarding risks/benefits of trial of labor versus repeat . ACOG/uptodate education given to patient. [] % likelihood of success per calculator TOLAC consent form signed: [] Plans Covid status: nonimmune counseled regarding risk of covid in vs vaccination and declined vaccination Flu vaccine: gvien Tdap vaccine: given Rhogam: na LARC form signed: yes Problem list reviewed and updated with the most current plan of care details and appropriate orders placed. Relevant counseling for the gestational age provided. Continue routine care and follow up unless otherwise noted in visit notes/problem list details OB Flowsheet Initial Weight: Not Recorded Date -?-?-?-?-?-?-?-?-?-?-?-?- EGA Weight BP Urine Prot -?-?-?-?-?-?-?-?-?-?-?-?- Glucose FHR FuHt Pres Dilation -?-?-?-?-?-?-?-?-?-?-?-?- Effaced St Visit Note 09/30/21 -?-?-?-?-?-?-?-?-?-?-?-?- 15w 6d 239 lb 134/88 -?-?-?-?-?-?-?-?-?-?-?-?- 150 -?-?-?-?-?-?-?-?-?-?-?-?- Sm- no vb crampi ng 11/05/21 -?-?-?-?-?-?-?-?-?-?-?--?- 21w 0d 239 lb 4 oz 130/80 Nega tive -?-?-?-?-?-?-?-?-?-?-?-?- Negative 152 -?-?-?-?-?-?-?-?-?-?-?-?- JV- no lof, vagi nal bleeding, or cramping. needs blood work and hga1c. then 24-28 weeks glucola 11/28/21 -?-?-?-?-?-?-?-?-?-?-?-?- 24w 2d 244 lb 114/68 Negative -?-?-?-?-?-?-?-?-?-?-?-?- Negative 150 -?-?-?-?-?-?-?-?-?-?-?-?- SM- no vb lof go od fm no regular ctx 12/24/21 -?-?-?-?-?-?-?-?-?-?-?-?- 28w 0d 246 lb 4 oz 128/70 Nega tive -?-?-?-?-?-?-?-?-?-?-?-?- Negative 161 -?-?-?-?-?-?-?-?-?-?-?-?- MH:No VB, LOF. G ood FM. Tdap and Larc. Nl CBC, GCT elevated and will schedule 3 hr GTT. MH:No VB, LOF. Good FM. Tdap and Larc. Nl CBC, GCT was 181=GDM. Referrals placed and supplies ordered 01/08/22 -?-?-?-?-?-?-?-?-?-?-?-?- 30w 1d 248 lb 116/62 Negative -?-?-?-?-?-?-?-?-?-?-?-?- Negative 155 30 -?-?-?-?-?-?-?-?-?-?-?-?- -No VB, LOF. O cca BH. Glucose readings WNL. See dietitian 01/[address] Roa 01/2202/04/22 -?-?-?-?-?-?-?-?-?-?-?-?- 34w 0d 250 lb 2 oz 138/80 Nega tive -?-?-?-?-?-?-?-?-?-?-?-?- Negative 145 33 -?-?-?-?-?-?-?-?-?-?-?-?- JV- fasting gluc ose levels under 90 and 2 hr pp under 120. no lof, vaginal bleeding, or dec m. 02/20/22 -?-?-?-?-?-?-?-?-?-?-?-?- 36w 2d 250 lb 116/82 Negative -?-?-?-?-?-?-?-?-?-?-?-?- Negative 140 37 2 -?-?-?-?-?-?-?-?-?-?-?-?- 50 -2 JV_ gbs co llected today. labor precautions discussed. 02/27/22 -?-?-?-?-?-?-?-?-?-?-?-?- 37w 2d 253 lb 136/80 Negative -?-?-?-?-?-?-?-?-?-?-?-?- Negative 140 39 Cephalic 3 -?-?-?-?-?-?-?-?-?-?-?-?- 70 -1 SM- no vb lof good fm no reuglar ctx BS controlled discussed delivery by 40 weeks due to diabetes 03/05/22 -?-?-?-?-?-?-?-?-?-?-?-?- 38w 1d 252 lb 8 oz 138/82 Nega tive -?-?-?-?-?-?-?-?-?-?-?-?- Negative 140 39 Cephalic 4 -?-?-?-?-?-?-?-?-?-?-?-?- 80 -2 JV- no lof vaginal bleeding, or dec fm. expext 8 + pounds if delivers at term (40 weeks) based us from 36 weeks. 03/12/22 -?-?-?-?-?-?-?-?-?-?-?-?- 39w 1d 118/70 -?-?-?-?-?-?-?-?-?-?-?-?- 140 39 Cephalic 4.5 -?-?-?-?-?-?-?-?-?-?-?-?- 80 0 SM- no vb lof good fm n oregular ctx discussed IOL next week if no labor. SM- no vb lof good fm n oreg ular ctx discussed IOL next week if no labor. membranes swept 03/17/22 -?-?-?-?-?-?-?-?-?-?-?-?- 39w 6d 258 lb 9.636 oz 158/ 85 129/71 141/71 146/87 140/75 141/78 140/73 -?-?-?-?-?-?-?-?-?-?-?-?- -?-?-?-?-?-?-?-?-?-?-?-?- NST FHR Rate Baby A Baseline: 140 Variability:: Moderate Accelerations:: 15 x 15 Decelerations:: None NST Reactive:: Yes FHR Category:: Category I Uterine Activity:: q3-5 ROS Constitutional Constitutional: Reports systems reviewed and no addt'l complaints, except as documented ENT HEENT: Reports systems reviewed and no addt'l complaints, except as documented Cardiovascular Cardiovascular: Reports systems reviewed and no addt'l complaints, except as documented Respiratory/Chest Respiratory/Chest: Reports systems reviewed and no addt'l complaints, except as documented Gastrointestinal Gastrointestinal: Reports systems reviewed and no addt'l complaints, except as documented and nausea; Denies abdominal pain Genitourinary Genitourinary: Reports systems reviewed and no addt'l complaints, except as documented, contractions Details: present and frequency (regular ) and movement Details: present Musculoskeletal Musculoskeletal: Reports systems reviewed and no addt'l complaints, except as documented Integumentary Integumentary: Reports as per HPI Neurologic Neurologic: Reports systems reviewed and no addt'l complaints, except as documented Endocrine Endocrinology: Reports systems reviewed and no addt'l complaints, except as documented Vital Signs Vital Signs Vital Signs: 03/17/22 01:12 03/17/22 01:12 03/17/22 01:16 Temperature Temperature Source Pulse Rate 95 77 Blood Pressure 158/85 H BP Systolic 158 BP Diastolic 85 Pulse Ox 03/17/22 01:16 03/17/22 01:10 03/17/22 01:10 Temperature 96.9 F L Temperature Source Pulse Rate Blood Pressure BP Systolic BP Diastolic Pulse Ox 98 98 03/17/22 01:27 03/17/22 01:27 03/17/22 02:30 Temperature Temperature Source Pulse Rate 76 Blood Pressure 129/71 H 141/71 H BP Systolic 129 141 BP Diastolic 71 71 Pulse Ox 03/17/22 02:30 03/17/22 02:30 03/17/22 02:30 Temperature Temperature Source Temporal Pulse Rate 75 76 Blood Pressure BP Systolic BP Diastolic Pulse Ox 03/17/22 02:30 03/17/22 02:30 03/17/22 03:16 Temperature 96.8 F L Temperature Source Pulse Rate Blood Pressure 146/87 H BP Systolic 146 BP Diastolic 87 Pulse Ox 97 03/17/22 03:16 03/17/22 03:16 03/17/22 03:17 Temperature Temperature Source Temporal Pulse Rate 77 Blood Pressure BP Systolic BP Diastolic Pulse Ox 99 03/17/22 03:17 03/17/22 04:26 03/17/22 04:26 Temperature 98.0 F Temperature Source Pulse Rate 70 Blood Pressure 140/75 H BP Systolic 140 BP Diastolic 75 Pulse Ox 03/17/22 04:26 03/17/22 04:26 03/17/22 05:16 Temperature 98.3 F Temperature Source Temporal Pulse Rate Blood Pressure 141/78 H BP Systolic 141 BP Diastolic 78 Pulse Ox 03/17/22 05:16 03/17/22 05:16 03/17/22 05:16 Temperature Temperature Source Pulse Rate 70 80 Blood Pressure BP Systolic BP Diastolic Pulse Ox 98 03/17/22 05:16 03/17/22 05:16 03/17/22 05:40 Temperature 97.8 F Temperature Source Temporal Pulse Rate 64 Blood Pressure BP Systolic BP Diastolic Pulse Ox 03/17/22 05:40 03/17/22 06:20 03/17/22 06:20 Temperature Temperature Source Pulse Rate 68 Blood Pressure 140/73 H BP Systolic 140 BP Diastolic 73 Pulse Ox 98 Weight Weight: 258 lb 9.636 oz Body Mass Index (BMI) 45.8 Physical Exam Const alert, oriented x3 and healthy appearing Constitutional Narrative: uncomfortable with contractions HEENT normocephalic and moist oral mucous membranes Head and Scalp: atraumatic Neck full ROM, no lymphadenopathy, supple and thyroid normal General: trachea midline Thyroid: thyroid normal Lymph Lymphatic: no lymphadenopathy noted Chest inspection of chest normal Resp normal respiratory effort Cardio regular rate GI normal to inspection, nondistended, normoactive bowel sounds, soft to palpation and non-tender Inspection: gravid external exam normal Bimanual Exam - Vag & Uterus: uterus non-tender Manual OB Exam: estimated gestational size appropriate, presentation cephalic, dilated, effaced and station Extremity normal to inspection General Extremity: Negative for edema Skin no rashes or lesions noted Neuro deep tendon reflexes 2+ bilaterally Motor Exam: strength 5/5 throughout and clonus absent Psych mental status grossly normal Labs Labs Labs: Blood Type A POSITIVE Antibody Screen NEGATIVE Hct 36.7 % (37-47) L Hgb 12.5 g/dL (12.0-15.0) Obstetrics US Syphilis Total Ab Non-reactive Rubella IgG Antibody Reactive (Nonreactive) Hep Bs Antigen Non-Reactive (Nonreactive) Chlamydia DNA (GIORGIO) Negative (Negative) Neisseria gonorrhoeae DNA (GIORGIO) Negative (Negative) HIV 1&2 Antibody Non-Reactive (Nonreactive) Glucose 1 Hr 50 gm 181 mg/dL (70-140) H Group B Strep DNA Negative (Negative) Miscellaneous Test Assessment & Plan (1) H/O section: COMMENT: successful x 1, plan . delivery by 40 weeks. IOL scheduled Saturday 03/17 at 7 am (2) : QUALIFIERS: Weeks of gestation: 38 weeks Qualified Code(s): Z3A.38 - 38 weeks gestation of COMMENT: GBS negative, declines carrier, ntd,and genetic screening. anatomy nl. (3) Supervision of other normal : COMMENT: PRR MEGHANA: 03/18/22 boy PC: Warren(C/S)Eder() Spouse: Khoa (4) Gestational diabetes mellitus: QUALIFIERS: Gestational diabetes mellitus control: unspecified Trimester: second trimester Qualified Code(s): O24.419 - Gestational diabetes mellitus in , unspecified control COMMENT: diet controled 36 weeks nl growth US plan delivery by 40 weeks. (5) Active labor at term: PLAN: Plan Patient presents IAL, plan expectant management for , pitocin PRN if needed. Pain management: minimal intervention declines epi at this time. GBS neg. Management of any complications: TOLAC consent signed, physician in house I have reviewed the [facility] and made any clinically relevant updates.
[2022-03-17 06:36] LABS: Bedside Glucose 87 mg/dL (74-106)
[2022-03-17 07:45] LABS: Bedside Glucose 91 mg/dL (74-106)
[2022-03-17] MEDS: 0.9% Normal Saline 100 ML IV.SOLN. 300 ML INTRA-UTER (09:30)
[2022-03-17] MEDS: Oxytocin 30 units/NS 500 ml 30 UNITS/500 ML IV.SOLN 334 UNITS IV (10:10)
--- NOTE | 2022-03-17 10:45 | OP.PCM_ITS ---
Assessment & Plan (1) H/O section: COMMENT: successful x 1, plan . delivery by 40 weeks. IOL scheduled Saturday 03/17 at 7 am (2) : QUALIFIERS: Weeks of gestation: 38 weeks Qualified Code(s): Z3A.38 - 38 weeks gestation of COMMENT: GBS negative, declines carrier, ntd,and genetic screening. anatomy nl. (3) Supervision of other normal : COMMENT: PRR MEGHANA: 03/18/22 boy PC: Warren(C/S), Eder() Spouse: Khoa (4) Gestational diabetes mellitus: QUALIFIERS: Gestational diabetes mellitus control: unspecified Trimester: second trimester Qualified Code(s): O24.419 - Gestational diabetes mellitus in , unspecified control COMMENT: diet controled 36 weeks nl growth US plan delivery by 40 weeks. Maternal Data Information MEGHANA Calculator Estimated Delivery Date Method Current WG Current Estimate 03/18/22 Ultrasound #1 39w 6d Final MEGHANA: 03/18/22 Final MEGHANA Source: US <20 weeks Vaginal Delivery Maternal Presentation Maternal Presentation: Spontaneous Rupture of Membranes Maternal Presentation: 39 weeks 6 days, srom, prior section, prior vaginal delivery (), desires TOLAC Type of Induction: Pitocin Operative Information Date of Procedure: 03/17/22 Pre-Operative Diagnosis: 39 weeks 6 days, SROM, desires TOLAC Post-Operative Diagnosis: 39 weeks 6 days, SROM, desires TOLAC Type of Anesthesia: None Estimated Blood Loss: 100cc Findings Description of Procedure: Patient began pushing and delivered the head in the OA presentation. The head was delivered atraumatically and a loose nuchal cord ?1 was identified and easily reduced over the infant's head. The anterior and posterior shoulders delivered without complication followed by the rest of the and the was placed on the maternal abdomen. Delayed cord clamping was employed for approximately 60 seconds. Cord was clamped and cut and gentle traction was applied to the cord and the placenta delivered spontaneously immediately following it was noted to be intact with three-vessel cord. The perineum and vagina were inspected and noted to have a 1st degree laceration, repaired with a 3-0 vicryl suture. EBL was 100 cc. Patient and infant tolerated delivery well. Presentation: GHASSAN Amniotic Membrane Rupture Type: Spontaneous Time of Membrane Rupture: 10:30 pm on 03/16/22 Amniotic Fluid Description: Clear Placental Delivery Description: Spontaneous Placenta Disposition: [facility] Cord Entanglement: Around neck x 1, loose Nuchal Cord Compression: Without compression A Gender: Male (1 minute): 8 (5 minute): 9 Delayed Cord Clamping: Yes Post Vaginal Delivery Medications Given After Delivery: IV Pitocin Episiotomy Description: None Laceration: 1st degree Complication Complications: None Admit VTE Documentation VTE Present on Admission: No VTE Mechan Device Prophylaxis: SCD's VTE Pharm Prophylaxis Ordered: No Reason Prophylaxis Not Ordered: Treatment Not Indicated Multi Select Codes Urinary/Genital Urinary/Genital CPT Codes: 94013 delivery [facility]
[2022-03-17 11:06] LABS: Bedside Glucose 116 mg/dL (74-106)
[2022-03-17] MEDS: Ibuprofen 600 MG Tablet PO (15:47)
[2022-03-18 00:15] VITALS: BP 144/76; PULSE 84; RESP 18
[2022-03-18 04:40] VITALS: BP 143/77; PULSE 88; RESP 18
[2022-03-18 04:51] LABS: Bedside Glucose 88 mg/dL (74-106)
[2022-03-18 08:00] VITALS: BP 138/74; PULSE 70; RESP 15; TEMP 35.8
--- NOTE | 2022-03-18 08:12 | PCM.PN.OB ---
Subjective Subjective Patient doing well without complaints. Tolerating PO. Ambulating and voiding without difficulty. Feeding well/baby SCN glucose. Denies chest pain, shortness of breath, calf pain/swelling, fevers, chills, lightheadedness. Objective Data Objective Data Vital Signs: Vital Signs Temp Pulse Resp BP Pulse Ox 97 F L 88 18 143/77 H 97 03/17/22 20:44 03/18/22 04:40 03/18/22 04:40 03/18/22 04:40 03/17/22 16:36 Oxygen Delivery Method Room Air Weight: 258 lb 9.636 oz Body Mass Index (BMI) 45.8 Intake & Output: Intake and Output for Last 24 Hours 03/16/22 03/17/22 03/18/22 23:59 23:59 23:59 Intake Total 2226.33 / 2226.33 Output Total 120 / 120 Balance 2106.33 / 2106.33 Lab / Micro Data Result Diagrams: 03/17/22 01:47 Labs: Laboratory Results - last 24 hr 03/17/22 11:00: POC Glucose 116 H 03/18/22 04:44: POC Glucose 88 Micro: Microbiology 03/17/22 01:45 Nasal Secretion SARS-CoV-2 Antigen (Rapid) - Final Physical Exam Const alert and oriented x3 HEENT normocephalic Eyes PERRL Neck full ROM Resp normal respiratory effort GI soft to palpation GI Narrative: FF below U Assessment & Plan (1) Vaginal delivery after previous delivery () declined: PLAN: Plan s/p PPD # 1 1. routine post delivery care 2. breast feeding- support given 3. rh positive 4. rubella immune 5. note mildly elevated systolic BP, continue to monitor. Asymptomactic
[2022-03-18] MEDS: Prenatal Vits Tablet 1 TABLET PO (10:22)
[2022-03-18] MEDS: Acetaminophen 500 MG Tablet 1000 MG PO (10:25)
[2022-03-18 12:44] VITALS: BP 121/71; PULSE 78; RESP 15; TEMP 36.8
[2022-03-18 16:20] VITALS: BP 133/75; PULSE 87; RESP 16; TEMP 36.5
[2022-03-18 21:02] VITALS: BP 138/76; PULSE 77; RESP 18; TEMP 36.5
[2022-03-19 01:26] VITALS: BP 125/69; PULSE 80; RESP 16; TEMP 36.2
--- NOTE | 2022-03-19 08:19 | DCINST_ITS ---
Discharge Instructions Diet Discharge Diet: No restrictions Activity Discharge Activity: Return to Normal Activity, May Not Drive (while taking narcotic pain medications.) and May Shower May resume sexual activity in: 4-6 weeks Dressing / Incision Call your doctor if your incision/area has: Continuous Slow Oozing, Sudden Increased Bleeding, Increased Pain/ Swelling, Increased Redness and Foul Smelling Discharge Follow Up Care Please Follow Up With: Sis Lao, When: Call [phone] to make an appointment with your doctor in 6 weeks. If you had elevated blood pressure or 4th degree laceration, you will need to be seen in 2 weeks. Test Results: Test results from this visit will be discussed in further detail at your follow- up appointment, if applicable. Discharge Plan Admission Admit Date/Time: 03/17/22 01:00 Primary Reason for Your Visit: vaginal delivery () Attending Provider: Sis Lao Primary Care Provider: Julieta Castillo Primary Discharge Orders/Prescriptions Prescriptions: New ibuprofen 600 mg tablet 600 mg PO Q6H PRN (Reason: pain) 7 Days Qty: 30 0RF Continued prenat.vits,kennedy,ajv-etpk-fwsjb [ Vitamin] tablet 1 tab PO QDAY No Action (DME) blood-glucose meter [[employer] Blood Glucose System] Kit See Rx Instructions .ROUTE .MEDSUPPLY Qty: 1 0RF Rx Instructions: As directed (DME) [employer] Test Strip See Rx Instructions .ROUTE .MEDSUPPLY Qty: 100 4RF Rx Instructions: QID (check fasting and 2 hr pp) Referrals / Follow Up: Care Physician,Julieta Primary [Primary Care Provider] - Disposition Disposition (needs filled in before D/C Order can be placed): Home, Self Care
--- NOTE | 2022-03-19 08:21 | PCM.DC.SUM ---
Providers Date of Admission: 03/17/22 Primary Care Physician: No Primary Care Phys Reason For Visit: VAGINAL DELIVERY Diagnosis Discharge Diagnosis (1) Vaginal delivery after previous delivery () declined: Status: Acute Medications at Discharge Home Medications prenat.vits,kennedy,uru-otpz-jcrvn ( Vitamin) 1 tab PO QDAY 11/24/17 blood sugar diagnostic ([employer]etrack Test) #100 ea 12/24/21 blood-glucose meter ([employer] Blood Glucose System) #1 ea 12/24/21 ibuprofen 600 mg tablet 600 mg PO Q6H PRN pain 7 days #30 tabs 03/19/22 Hospital Course Operations None Procedures None Summary of Care Provided Minutes Spent on Discharge: 15 Hospital Course: The patient was admitted for active labor on 03/17/22, she underwent a delivery without complications on 03/17/22 approximately 12 hours later. On day #1 she was having some cramping and breast feeding difficulties but by day #2 she was feeling better and requesting discharge to home. Physical Exam Const alert, oriented x3 and no apparent distress General Appearance: cooperative and comfortable Resp normal respiratory effort Cardio regular rate GI normal to inspection, nondistended, normoactive bowel sounds GI Narrative: uterus is firm below umbilicus Palpation: soft Bimanual Exam - Adnexa, Other: Negative for cul-de-sac fullness Back/Spine no CVA tenderness and thoraco-lumbar ROM normal Extremity normal to inspection, no clubbing, cyanosis or edema, no calf tenderness and no pedal edema Psych mental status grossly normal, thought process normal, cooperative, affect normal, speech normal, activity/motor behavior normal, denies homicidal ideation and denies suicidal ideation Weight / BMI Weight Weight: 258 lb 9.636 oz Body Mass Index (BMI) 45.8 ABG / Lab / Microbiology Data Result Diagrams: 03/17/22 01:47 Microbiology: Microbiology 03/17/22 01:45 Nasal Secretion SARS-CoV-2 Antigen (Rapid) - Final D/C Instructions Discharge Diet: No restrictions Discharge Activity: Return to Normal Activity May resume sexual activity in: 4-6 weeks Lifting Restricted to (Lbs): 30 Call your doctor if you observe: Fever of 101 or Higher, Using more than 1 pad per hour, Shortness of breath, Dizziness, Fainting spells, Swelling in the ankles, Chest pain, Increased palpitations (irregular heartbeat) and Calf discomfort Please Follow Up With: Sis Lao DO When: 6 weeks Meaningful Use Info Meaningful Use Diagnoses (Choose all that apply): None applicable Discharge Plan Admission Admit Date/Time: 03/17/22 01:00 Primary Reason for Your Visit: vaginal delivery () Attending Provider: Sis Lao Primary Care Provider: Julieta Castillo Primary Discharge Orders/Prescriptions Prescriptions: New ibuprofen 600 mg tablet 600 mg PO Q6H PRN (Reason: pain) 7 Days Qty: 30 0RF Continued prenat.vits,kennedy,xpw-elnx-mhmko [ Vitamin] tablet 1 tab PO QDAY No Action (DME) blood-glucose meter [[employer] Blood Glucose System] Kit See Rx Instructions .ROUTE .MEDSUPPLY Qty: 1 0RF Rx Instructions: As directed (DME) [employer] Test Strip See Rx Instructions .ROUTE .MEDSUPPLY Qty: 100 4RF Rx Instructions: QID (check fasting and 2 hr pp) Referrals / Follow Up: Care Physician,Julieta Primary [Primary Care Provider] - Disposition Disposition (needs filled in before D/C Order can be placed): Home, Self Care
[2022-03-19 09:35] VITALS: BP 135/77; PULSE 86; RESP 16; TEMP 36.7; O2SAT 96
[2022-03-19] MEDS: Prenatal Vits Tablet 1 TABLET PO (10:52)
[2022-03-19 13:18] VITALS: BP 136/88; PULSE 84; RESP 16; TEMP 36.8; O2SAT 96
== END 2022-03-19 13:20 | disposition home or self-care (01) | DRG 807 ==
PROVIDERS: Obstetrics & Gynecology; Admitting Provider Obstetrics & Gynecology; Visit Provider Obstetrics & Gynecology
DX: O34.219 Maternal care for unspecified type scar from previous cesarean delivery (principal); Z37.0 Single live birth; O24.420 Gestational diabetes mellitus in childbirth, diet controlled; O70.0 First degree perineal laceration during delivery; Z3A.39 39 weeks gestation of pregnancy; O42.02 Full-term premature rupture of membranes, onset of labor within 24 hours of rupture; O69.81X0 Labor and delivery complicated by cord around neck, without compression, not applicable or unspecified; O99.893 Other specified diseases and conditions complicating puerperium; R03.0 Elevated blood-pressure reading, without diagnosis of hypertension; Z28.310 Unvaccinated for COVID-19; Z28.21 Immunization not carried out because of patient refusal; Z87.891 Personal history of nicotine dependence
CPT/HCPCS: 59025; 59050; 82962; 85025; 86850; 86900; 86901; 87426; 99218; J7120; G0378

== ENCOUNTER → 2024-06-26 | Outpatient (CLI) | payer BC, SELFPAY ==
[2024-06-26 14:21] LABS: hCG Titer Quant., Serum 35796 mIU/mL (1-3)
== END | disposition home or self-care (01) ==
LOC: PAVLAB 13:35
PROVIDERS: Referring Provider Obstetrics & Gynecology; Visit Provider Obstetrics & Gynecology
DX: N91.2 Amenorrhea, unspecified (principal)
CPT/HCPCS: 36415; 84702

== ENCOUNTER → 2024-06-29 | Outpatient (CLI) | payer BC, SELFPAY ==
[2024-06-29 16:25] LABS: Absolute Lymphocyte Count 1.77 X10^3/uL (0.83-4.51); Absolute Neutrophil Count 5.9 X10^3/uL (2.0-7.7); Basophil# 0.02 X10^3/uL; Basophil% 0.2 % (0-1); Eosinophil# 0.11 X10^3/uL; Eosinophils% 1.3 % (0-5); Hematocrit 37.9 % (37-47); Hemoglobin 12.6 g/dL (12.0-15.0); Lymphocyte # 1.77 X10^3/ul (0.83-4.51); Lymphocyte % 21.4 % (19-41); Mean Corp Hgb Conc 33.2 g/dL (32-36); Mean Corpuscular Hgb 28.8 pg (27.0-32.0); Mean Corpuscular Volume 86.5 fL (81-99); Mean Platelet Vol. 9.8 fl (6.2-12.0); Monocyte# 0.44 X10^3/uL; Monocyte% 5.3 % (0-10); NRBC Flagged by Analyzer 0 % (0-5); Neutrophil # 5.89 X10^3/uL (2.7-7.7); Neutrophil % 71.4 % (47-70); Platelet Count 287 K/mm3 (150-450); RBC Distribution Width CV 12.4 % (11.6-14.6); Red Blood Count 4.38 M/mm3 (4.2-5.4); White Blood Count 8.3 K/mm3 (4.4-11.0)
[2024-06-29 17:03] LABS: T4 Free Direct 1.09 ng/dL (0.76-1.46); Thyroid Stim Hormone (TSH) 0.481 uIU/mL (0.358-3.740)
[2024-06-29 17:08] LABS: Hemoglobin A1c 5.4 % (3.8-5.6)
[2024-06-29 18:28] LABS: HIV - WCH Non-Reactive (Nonreactive); Hepatitis B Surface Antigen Non-Reactive (Nonreactive); Hepatitis C Antibody Non-Reactive (Nonreactive); Rubella IgG Reactive (Nonreactive); Syphilis Antibodies Non-reactive
[2024-07-03 21:07] LABS: Chlamydia By Nucleic Acid AMP Negative (Negative); Gonococcus By Nucleic Acid AMP Negative (Negative)
[2024-07-06 16:10] LABS: HPV APTIMA, High Risk Negative (Negative)
== END | disposition home or self-care (01) ==
PROVIDERS: Obstetrics & Gynecology; Referring Provider Advanced Practice Midwife; Visit Provider Advanced Practice Midwife
DX: O99.210 Obesity complicating pregnancy, unspecified trimester (principal); Z12.4 Encounter for screening for malignant neoplasm of cervix; Z3A.00 Weeks of gestation of pregnancy not specified
CPT/HCPCS: 36415; 83036; 84439; 84443; 85025; 86703; 86762; 86780; 86803; 86850; 86900; 86901; 87086; 87088; 87340; 87491; 87591; 87624; 88175; G0145

== ENCOUNTER 2024-08-29 03:47 | Observation (INO) | payer BC, SELFPAY ==
[2024-08-29] VITALS (42 sets, daily range): BP systolic 104–127; BP diastolic 53–85; PULSE 76–121; RESP 16; TEMP 36.1–36.9; O2SAT 90–100
[2024-08-29] MEDS: Lactated Ringers 1,000 ML 999 ML IV (00:20)
[2024-08-29] MEDS: Oxytocin 15 Units/NS 250ml 15 UNITS/250 ML IV.SOLN 83 UNITS IV (00:25)
[2024-08-29 00:39] LABS: Absolute Lymphocyte Count 1.56 X10^3/uL (0.83-4.51); Absolute Neutrophil Count 13.6 X10^3/uL (2.0-7.7); Basophil# 0.06 X10^3/uL; Basophil% 0.4 % (0-1); Eosinophil# 0.08 X10^3/uL; Eosinophils% 0.5 % (0-5); Hematocrit 25.6 % (37-47); Hemoglobin 8.9 g/dL (12.0-15.0); Lymphocyte # 1.56 X10^3/ul (0.83-4.51); Lymphocyte % 9.3 % (19-41); Mean Corp Hgb Conc 34.8 g/dL (32-36); Mean Corpuscular Hgb 29.8 pg (27.0-32.0); Mean Corpuscular Volume 85.6 fL (81-99); Mean Platelet Vol. 9.9 fl (6.2-12.0); Monocyte# 1.03 X10^3/uL; Monocyte% 6.1 % (0-10); NRBC Flagged by Analyzer 0.1 % (0-5); Neutrophil # 13.63 X10^3/uL (2.7-7.7); Neutrophil % 81.1 % (47-70); Platelet Count 303 K/mm3 (150-450); RBC Distribution Width CV 12.3 % (11.6-14.6); RBC Distribution Width SD 37.9 fl (35.1-43.9); Red Blood Count 2.99 M/mm3 (4.2-5.4); White Blood Count 16.8 K/mm3 (4.4-11.0)
[2024-08-29] MEDS: miSOPROStol 200 MCG Tablet 800 MCG PO (01:00)
[2024-08-29] MEDS: fentaNYL 100 MCG/2 ML Ampul 50 MCG IV (01:22)
[2024-08-29] MEDS: Lactated Ringers 1,000 ML 125 ML IV (01:26)
--- NOTE | 2024-08-29 02:39 | PCM.HP.BLA ---
History and Physical HPI - General HPI Narrative NICOLE YANG, is a 39 F who [id number] @ 21w2d after delivering at home nonviable , per patient not live. she states she felt fine throughout the day today and then this evening she started having cramping and delivered immediately, she called right after delivery and followed instructions to clamp and cut the cord and then immediately came to the hospital. She stated bleeding was minimal although she states she passed out at home once after the delivery but did not hit her head or anything. Maternal Data Information MEGHANA Calculator ? Estimated Delivery Date Method Current WG Current Estimate 01/07/25 LMP (Uncertain) 21w 2d Other Estimates 01/08/25 Ultrasound #1 21w 1d PFSH PFS Medical History (Updated 08/29/24 @ 00:[address] Yu Zaman MD) FH: melanoma History of depression Vaginal delivery after previous delivery () declined Active labor at term Asthma Supervision of other normal Home Medications ?Medication ?Instructions ?Recorded ?Last Taken ?Type albuterol sulfate 90 mcg/actuation 2 puff inhalation Q6H PRN 06/28/24 Unknown History aerosol inhaler multivitamin no.47-iron fum 27 cap PO 06/28/24 Unknown History mg-folate no.1 1 mg-dha 300 mg capsule (PNV-DHA) Allergy/AdvReac Type Severity Reaction Status Date / Time No Known Allergies Allergy Verified 08/29/24 00:34 Family History SisterCancer, Onset Age: 38 melanoma, ovary, lung, brain, spine Surgical History History of surgery H/O section delivery delivered Social History adopted: No household members: spouse and children number of children: 3 current occupational status: employed 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 current occupational exposures/hazards: No pets and animals: Yes pets and animals: dog(s) history of recent travel: No sexually active: Yes Smoking Status: Former smoker how long ago did patient quit smokinyrs ago alcohol intake: never substance use type: does not use well-balanced diet: daily or most days caffeine: Yes Type: coffee Number of servings: 2 eating out: 1-3 times/week during the past year weight has: remained stable what type of physical activity do you participate in: none felix/baptist: Scientologist seatbelt use: always do you feel safe at home: Yes additional social history: Balaji Poole Patient works at [employer] History 5 Elective abortions Hx Para 3 Spontaneous abortions 1 Hx # Term Pregnancies Ectopic pregnancies Hx # Pregnancies Multiple births # of living children 3 Past Pregnancies Del. Date Name GA/Weeks Outcome Route Bth Weight Gen Labor Lgth Anesthesia Del Locatn Provider FOB Unknown 2011 boy 15 spontaneous ? 09/05/14 Warren 42 live - full term 8lbs 10oz Male ? spinal Maldonado Dr. Adrianne Couch 06/14/18 Eder 38 live - full term 5lbs 14oz Male precipitous 30mins pudendal [facility] GUADALUPE ? 03/17/22 Ta 39 live - full term 6lbs 13oz Male ? none [facility] Sis Deliarob Page Khoa Delivery Date: 09/05/14 Last Updated by: Christine Estrada t, fever Delivery Date: 03/17/22 Last Updated by: Siria Prieto see problem list for complications, TOLAC, vaginal delivery, 39 jv Ta chavez Visit Details Expected Delivery Route/Plan patient counseled regarding risks/benefits of trial of labor versus repeat . ACOG/uptodate education given to patient. [] % likelihood of success per calculator TOLAC consent form signed: [] Labor Preferences- CB/BF classes: [] labor support person: [] labor intervention preferences: [] pain management options preferred: [] cut cord/dad catch: [] : [] PP control planned: [] discussed possible routes of delivery and associated risks: [] special requests: [] Plans Covid status: [] Flu vaccine: given Tdap vaccine: [] Rhogam: [] LARC form signed: [] Problem list reviewed and updated with the most current plan of care details and appropriate orders placed. Relevant counseling for the gestational age provided. Continue routine care and follow up unless otherwise noted in visit notes/problem list details OB Flowsheet Initial Weight: 240 lb Date <del>?</del> EGA Weight BP Urine Prot <del>?</del> Glucose FHR FuHt Pres Dilation <del>?</del> Effaced St Visit Note 06/29/24<del>?</del> 12w 4d 240 lb 4 oz(+4 oz) 138/85 <del>?</del> 158 ? ? <del>?</del> ? kw- CRL cons with dates. declines NIPT. 07/27/24<del>?</del> 16w 4d 240 lb(+0 oz) 140/89 Negative <del>?</del> Negative 155 ? ? <del>?</del> ? SM- no vb lof cramping, repeat bp, sister has stage 4 melanoma and she is POA. 08/21/24<del>?</del> 20w 1d 242 lb(+2 lb) ? Negative <del>?</del> Negative 157 ? ? <del>?</del> ? KW- work in for vaginal discharge. on spec exam appears dilated about 2-3 cm. membranes noted on exam. Discussed with JV-patient will be going up to [place] to attempt emergency cerclage. ROS Constitutional Constitutional: Reports systems reviewed and no addt'l complaints, except as documented ENT HEENT: Reports systems reviewed and no addt'l complaints, except as documented Cardiovascular Cardiovascular: Reports systems reviewed and no addt'l complaints, except as documented Respiratory/Chest Respiratory/Chest: Reports systems reviewed and no addt'l complaints, except as documented Gastrointestinal Gastrointestinal: Reports systems reviewed and no addt'l complaints, except as documented and nausea; Denies abdominal pain Genitourinary Genitourinary: Reports systems reviewed and no addt'l complaints, except as documented, contractions Details: present and frequency (regular ) and movement Details: present Musculoskeletal Musculoskeletal: Reports systems reviewed and no addt'l complaints, except as documented Integumentary Integumentary: Reports as per HPI Neurologic Neurologic: Reports systems reviewed and no addt'l complaints, except as documented Endocrine Endocrinology: Reports systems reviewed and no addt'l complaints, except as documented Physical Exam Const alert, oriented x3 and healthy appearing Constitutional Narrative: uncomfortable with contractions HEENT normocephalic and moist oral mucous membranes Head and Scalp: atraumatic Neck full ROM, no lymphadenopathy, supple and thyroid normal General: trachea midline Thyroid: thyroid normal Lymph Lymphatic: no lymphadenopathy noted Chest inspection of chest normal Resp normal respiratory effort Cardio regular rate GI soft to palpation and non-tender external exam normal Narrative: Several large clots noted and cord clamped at perineum bedside ultrasound shows placenta still intact inside the uterus. At 1 hour . Bimanual Exam - Vag & Uterus: uterus non-tender Extremity normal to inspection General Extremity: Negative for edema Skin no rashes or lesions noted Psych mental status grossly normal Labs Labs Labs: Blood Type A POSITIVE Antibody Screen NEGATIVE Hct 37.9 % (37-47) Hgb 12.6 g/dL (12.0-15.0) Obstetrics Ultrasound ? Syphilis Total Ab Non-reactive Rubella IgG Antibody Reactive (Nonreactive) Hep Bs Antigen Non-Reactive (Nonreactive) Hepatitis C Antibody Non-Reactive (Nonreactive) Chlamydia DNA (GIORGIO) Negative (Negative) N.gonorrhoeae DNA (GIORGIO) Negative (Negative) HIV 1&2 Antibody Non-Reactive (Nonreactive) Glucose 1 Hr 50 gm 181 mg/dL (70-140) H Gest Glucose Tolerance MG/DL Group B Strep DNA Negative (Negative) Rhogam given: No Miscellaneous Test Assessment & Plan (1) Cervical insufficiency during in second trimester, antepartum: COMMENT: admitted [facility] 08/21/24. As of morning 08/22/24 (20 weeks 2 days), She is 4 cm breech and likely going home. will need weekly follow ups and readmit to [facility] at 22 weeks when viable. was not a candidate for rescue cerclage due to advanced dilation. (2) Asthma: (3) AMA (advanced maternal age) multigravida 35+: COMMENT: 36 week growth US. delivery by 40 weeks (4) Supervision of high-risk : COMMENT: PRR, , MEGHANA 01/07/25, Eder Guzmán Westley, Khoa (5) : QUALIFIERS: Weeks of gestation: 20 weeks Qualified Code(s): Z3A.20 - 20 weeks gestation of COMMENT: declines NTD, NIPT & Carrier testing (6) History of miscarriage, currently : COMMENT: 1st loss at 15 weeks-male (7) History of section: COMMENT: second (8) Obesity affecting : COMMENT: HgbA1c. BMI 42 (9) Retained placenta after delivery without hemorrhage but with other complication: PLAN: Plan Will give Pitocin and Cytotec, labs ordered and IV started with fluids being given. If retention of placenta for 4 hours or increased significant bleeding recommend D&C.
--- NOTE | 2024-08-29 02:39 | PCM.PN.BLA ---
Progress Note after hourly assessements, retained placenta is still seen after 3 hours with no signficiant movement or expulsion and increased bleeding seen, recommend stat CBC and proceeding with d and c for retained placenta. patient consented and agrees.
--- NOTE | 2024-08-29 02:41 | PCM.OPRPT ---
Problems Associated Problem List Diagnoses (1) Retained placenta after delivery without hemorrhage but with other complication: (2) Cervical insufficiency during in second trimester, antepartum: Operative Report (Standard) Operative Information Surgery/Procedure Performed: suction d and c Surgeon: Yu Zaman Date of Procedure: 08/29/24 Procedure Start Time: 03:02 Procedure Stop Time: 03:42 Pre-Operative Diagnosis: retained placenta, anemia Post-Operative Diagnosis: same Select all DRAINS/GRAFTS/IMPLANTS that apply: None Type of Anesthesia: IV Sedation Special Medications: methergine hemabate txa pitocin floseal cytotec Estimated Blood Loss: 800 Fluids Replaced: crystalloid 1 unit prbc ordered Specimen collected: Yes Description of specimen(s) removed: placenta Description of surgery: patient was taken to the operating room and was placed in the dorsolithotomy position. Patient was prepped and draped in the normal sterile fashion and placenta was progressively removed from the uterus with a ring forceps and then a 12 mm suction curette was used to perform suction curettage and able to remove the remaining retained placenta. brisk bleeding was encountered and Ultrasound was performed at the bedside to confirm complete removal. additional medications given to obtain hemostasis and a unit of blood will be transfused due to anemia. a raw appearance of the cervix with bleeding was noted and after compression with multiple ring forceps to aid in hemostasis, floseal was applied and then hemostasis noted. patient awoken and taken to recovery in stable condition. Surgical Findings: retained placenta Adjuster And Inspector software developer intern: No Complications Complications: No Multi Select Codes Urinary/Genital Urinary/Genital CPT Codes: 77837 Curettage, (for retained placenta) and 80969 Delivery of placenta
--- NOTE | 2024-08-29 02:45 | DCINST_ITS ---
Discharge Instructions Diet Discharge Diet: No restrictions DC O2, CPAP, BIPAP needs Additional Home O2 Discharge instructions: No Dressing / Incision Discharge Activity: Return to Normal Activity, May Shower and May Take a Tub Bath (after 1 week) May resume sexual activity in: 4-6 weeks Weight Bearing Status: Weight bearing as tolerated Lifting Restrictions: none Dressing / Incision Call your doctor if you observe: Fever of 101 or Higher, Using more than 1 pad per hour, Shortness of breath and Uncontrolled pain Follow Up Care Please Follow Up With: Yu Zaman MD When: Call [phone] to schedule appointment. Test Results: Test results from this visit will be discussed in further detail at your follow- up appointment, if applicable. Discharge Plan Admission Admit Date/Time: 08/29/24 00:10 Attending Provider: Yu Zaman Primary Care Provider: Care Juleita Monroe Primary Discharge Orders/Prescriptions Prescriptions: No Action PNV-DHA 27 mg iron-1 mg -300 mg capsule PO DAILY albuterol sulfate 90 mcg/actuation HFA aerosol inhaler 2 puff inhalation Q6H PRN (Reason: shortness of breath or wheezing) Referrals / Follow Up: Care Physician,No Primary [Primary Care Provider] - Disposition Disposition (needs filled in before D/C Order can be placed): Home, Self Care
[2024-08-29 02:52] LABS: Absolute Lymphocyte Count 1.06 X10^3/uL (0.83-4.51); Absolute Neutrophil Count 15.5 X10^3/uL (2.0-7.7); Basophil# 0.05 X10^3/uL; Basophil% 0.3 % (0-1); Eosinophil# 0.02 X10^3/uL; Eosinophils% 0.1 % (0-5); Hematocrit 22.3 % (37-47); Hemoglobin 7.6 g/dL (12.0-15.0); Lymphocyte # 1.06 X10^3/ul (0.83-4.51); Mean Corp Hgb Conc 34.1 g/dL (32-36); Mean Corpuscular Hgb 29.7 pg (27.0-32.0); Mean Corpuscular Volume 87.1 fL (81-99); Mean Platelet Vol. 9.9 fl (6.2-12.0); Monocyte# 0.68 X10^3/uL; Monocyte% 3.8 % (0-10); NRBC Flagged by Analyzer 0.1 % (0-5); Neutrophil # 15.52 X10^3/uL (2.7-7.7); Neutrophil % 87.5 % (47-70); Platelet Count 254 K/mm3 (150-450); RBC Distribution Width CV 12.2 % (11.6-14.6); RBC Distribution Width SD 38.4 fl (35.1-43.9); Red Blood Count 2.56 M/mm3 (4.2-5.4); White Blood Count 17.7 K/mm3 (4.4-11.0)
[2024-08-29] MEDS: TRANEXAMIC ACID 1,000 MG in 0.9% Normal Saline (100mL Bag) 100 ML 440 MG IV (03:02)
[2024-08-29] MEDS: Cefazolin 2 GM in Syringe IV (03:02)
--- NOTE | 2024-08-29 03:16 | PLAC_PTH ---
PATIENT: NICOLE YANG LOC: [facility] U#:[id number] AGE/SX: 39/F ROOM: WP021 RE08/29/[address]: Dr. Yu Zaman MD : 1985 BED: 1 DIS: 08/29/2024 SPEC #: [id number] RECD: 08/29/24 04:51 STATUS: JB JIMENEZ #: [id number] GAYATHRI: 08/29/24 03:[address]: Yu Zaman DEPT: SURGICAL PATHOLOGY RECD BY: Yomaira Motley ENTERED: 08/29/24 07:04 SP TYPE: PLACENTA OTHR DR: No Primary Care Phys Tissues: Placenta, NOS Procedures: Surgery Specimen Level V HEADER OPERATION: demise PRE-OP DIAGNOSIS: D&C, demise TISSUE SUBMITTED: Placenta MICROSCOPIC DIAGNOSIS Payne placenta (151 gm) (21 weeks): Umbilical cord - Trivascular with acute funisitis. Placental membranes - Acute chorioamnionitis and degenerative change. Placental disc - Acute vasculitis of superficial placental vessels, immature villi consistent with age and acute deciduitis. AM:mr 08/30/2024 MICROSCOPIC DESCRIPTION Slides are reviewed. GROSS DESCRIPTION SPECIMEN: PLACENTA / CLINICAL INFORMATION: A. Weight: N/A B. Gestational Age: 21 weeks C. Sex: N/A PLACENTAL WEIGHT (POST FIXATION): 151 gm PLACENTAL DIMENSIONS: 11.0 x 9.5 x 3.0 cm PLACENTAL SHAPE: Usual ovoid MEMBRANES - Present A. Insertion: Marginal B. Site of rupture from edge: 4.0 cm from edge of placental disc C. Color of membrane: Sanders-beckham D. Abnormalities: None UMBILICAL CORD - Present A. Color: Sanders-beckham B. Insertion: Near central C. Length: 2.0 cm D. Diameter: 1.0 cm E. Number of vessels: Three F. Abnormalities: None PLACENTAL DISC - Present A. Color of surface: Sanders-beckham B. surface abnormalities: None C. Maternal cotyledons: Intact with minimal tears D. Attached retro placental clot: No clot E. Cut surface: Dark red and spongy F. Lesions: Serial sections do not reveal mass lesions. G. Separate clot: 9.0 x 8.0 x 2.0cm SECTIONS SUBMITTED: Dr. Morse 1. Umbilical cord ( end notched) 2. Membrane roll 3. Placental disc, and maternal surfaces 4. Placental disc, and maternal surfaces 5. Placental disc, and maternal surfaces AM.mr 08/29/2024 TC:2 CPT: 15502
[2024-08-29] MEDS: Methylergonovine 0.2 MG/ML Ampul IM (03:21)
[2024-08-29] MEDS: Carboprost Tromethamine 250 MCG/ML Ampul IM ×2 (03:24→03:44)
[2024-08-29] MEDS: Oxytocin 10 UNITS/ML Vial IM (03:26)
[2024-08-29] MEDS: miSOPROStol 200 MCG Tablet 400 MCG RC (03:29)
[2024-08-29] MEDS: Acetaminophen 500 MG Tablet 1000 MG PO (04:51)
[2024-08-29 04:52] LABS: Pathology Specimen OB SEE PATHOLOGY REPORT
[2024-08-29] MEDS: Loperamide 2 MG Capsule PO (04:56)
[2024-08-29] MEDS: Naproxen 500 MG Tablet PO (05:28)
[2024-08-29] MEDS: 0.9% Saline Lock 10 ML Syringe IV (06:50)
--- NOTE | 2024-08-29 10:43 | CASEMGMT ---
Labor and Delivery Bus Company Manager Sw received consult to meet with patient due to demise at 21 weeks gestation. Per medical record and patient report, patient started bleeding at home last week, presented to [facility] times for medical assistance. Patient states that she was sent home both occasions and was told to prepare for a demise. Patient states that she started bleeding at home last night and then delivered baby in the kitchen of her home with her . Patient reports that she and her have three older boys: Warren (almost 10), Eder (6), and Ta (2). Patient and her state that they do have supports, but are slightly limited. Patient says that their older children are with Khoa's parents, and they have not told them much. Sw attempted to assist parents in processing the trauma that has just happened to them. Sw explained grief as a natural hum an emotion and encouraged them to give themselves the freedom to process their grief. Sw also discussed the stages of grief (DABDA). Patient states that neither she or her are connected to mental health services or supports, but may be open to getting connected due to recent loss. Patient and her were quiet and withdrawn and understandably upset given their recent traumatic loss. Sw utilized active listening and provided emotional support. Sw offered to return to room to meet with patient again if she had additional questions or if any other needs presented themselves. IMAN Mercer, COLOR DEVELOPER
[2024-08-29 10:55] LABS: Absolute Lymphocyte Count 1.65 X10^3/uL (0.83-4.51); Absolute Neutrophil Count 15.7 X10^3/uL (2.0-7.7); Basophil# 0.03 X10^3/uL; Basophil% 0.2 % (0-1); Hematocrit 23.9 % (37-47); Hemoglobin 8.2 g/dL (12.0-15.0); Lymphocyte # 1.65 X10^3/ul (0.83-4.51); Lymphocyte % 8.9 % (19-41); Mean Corp Hgb Conc 34.3 g/dL (32-36); Mean Corpuscular Hgb 29.5 pg (27.0-32.0); Mean Platelet Vol. 10.1 fl (6.2-12.0); Monocyte# 0.77 X10^3/uL; Monocyte% 4.1 % (0-10); NRBC Flagged by Analyzer 0.1 % (0-5); Neutrophil # 15.66 X10^3/uL (2.7-7.7); Platelet Count 256 K/mm3 (150-450); RBC Distribution Width CV 12.5 % (11.6-14.6); RBC Distribution Width SD 38.8 fl (35.1-43.9); Red Blood Count 2.78 M/mm3 (4.2-5.4); White Blood Count 18.6 K/mm3 (4.4-11.0)
--- NOTE | 2024-08-30 11:40 | NURSING ---
Nurse had mistakenly documented in intervention Delivery Record. This demise delivered at home and not in the hospital so Delivery Record should not have been documented on, which accrues charges for a delivery. This should remove the charge from the patient and accounting was called to confirm. Sonal Kay RN, clinical general manager [employer] data [employer].
== END 2024-08-29 13:20 | disposition home or self-care (01) ==
PROVIDERS: Admitting Provider Obstetrics & Gynecology; Referring Provider Obstetrics & Gynecology; Visit Provider Obstetrics & Gynecology
DX: O73.0 Retained placenta without hemorrhage (principal); O34.219 Maternal care for unspecified type scar from previous cesarean delivery; D64.9 Anemia, unspecified; O99.512 Diseases of the respiratory system complicating pregnancy, second trimester; O34.42 Maternal care for other abnormalities of cervix, second trimester; Z87.891 Personal history of nicotine dependence; N88.3 Incompetence of cervix uteri; Z3A.21 21 weeks gestation of pregnancy; J45.909 Unspecified asthma, uncomplicated; O99.012 Anemia complicating pregnancy, second trimester; Z39.0 Encounter for care and examination of mother immediately after delivery
CPT/HCPCS: 59414; 00940; 85025; 86850; 86900; 86901; 86920; 88307; 96361; 96374; 99221; P9016; A4216; G0378; J2405

== ENCOUNTER → 2024-09-06 | Outpatient (CLI) | payer BC, SELFPAY | END | disposition home or self-care (01) | LOC: LABSPEC 11:24 | PROVIDERS: Referring Provider Nurse Practitioner Family; Visit Provider Nurse Practitioner Family | DX: N94.89 Other specified conditions associated with female genital organs and menstrual cycle (principal) | CPT/HCPCS: 87086; 87088; 87186 ==